=== PATIENT | female | born 1960 | race Caucasian/White ===

== ENCOUNTER 2018-02-27 14:16 | Inpatient (IN) ==
[2018-02-27] MEDS ORDERED: predniSONE 20 MG TABLET PO ONE (15:17)
[2018-02-27] MEDS ORDERED: Ipratropium/Albuterol Neb 3 ML IH ONE (15:17)
--- NOTE | 2018-02-27 15:20 | Emergency Department Note ---
Disposition Clinical Impression: Vomiting and diarrhea, Elevated troponin Asthma with exacerbation Qualifiers: Asthma severity: moderate Asthma persistence: persistent Qualified Code(s): J45.41 - Moderate persistent asthma with (acute) exacerbation Upper respiratory infection Qualifiers: URI type: unspecified viral URI Qualified Code(s): J06.9 - Acute upper respiratory infection, unspecified Disposition: Admitted As Inpatient Condition: Good Referrals: Yuko Washington, [employer]CR[employer]ING SUPERVISOR [Primary Care Provider] - Forms: ED Satisfaction Letter Time of Disposition: 17:09 SOB HPI - General Chief Complaint: ED Shortness of Breath/Dyspnea Stated Complaint: "can't breathe,can't pee" Time Seen by Provider: 02/27/18 14:58 Source: patient Mode of arrival: ambulatory Limitations: no limitations Nursing Notes Reviewed: Yes Vital Signs Reviewed: Yes - History of Present Illness This is a 57-year-old female who comes to the emergency department reporting shortness of breath that began 6 days prior to arrival, accompanied by a cough. She states that 4 days prior to arrival she also developed nausea with vomiting and diarrhea. She states that 24 hours prior to arrival she noticed matter gluing together the eyelids of both eyes. She saw her PCP yesterday and was given a prescription for an antibiotic, amoxicillin she believes, along with eyedrops for perceived bacterial conjunctivitis. She has a Pulmicort inhaler, but uses this only occasionally, "when she needs it". I explained to her that the steroid inhaler is to be used every day as a preventative so that she might never need to use her albuterol. She clearly did not understand this. - Related Data Home Medications Medication Instructions Recorded Confirmed Albuterol Sulfate [Proair Hfa] 2 puff IH Q4H PRN 02/27/18 02/27/18 Aspirin Enteric Coated [Aspirin EC] 81 mg PO DAILY 02/27/18 02/27/18 Budesonide [Pulmicort Flexhaler 2 puff IH BID 02/27/18 02/27/18 90mcg] Calcium Carbonate [Calcium] 600 mg PO DAILY 02/27/18 02/27/18 Carvedilol 12.5 mg PO BID 02/27/18 02/27/18 Chlorthalidone 25 mg PO DAILY 02/27/18 02/27/18 Cholecalciferol (D-3) [Vitamin D] 2,000 unit PO DAILY 02/27/18 02/27/18 Esomeprazole Magnesium [Nexium] 20 mg PO DAILY 02/27/18 02/27/18 Folic Acid 0.8 mg PO DAILY 02/27/18 02/27/18 Insulin Pump Cartridge [Insulin 1 device SQ AD 02/27/18 02/27/18 Pump] Lisinopril [Zestril] 40 mg PO DAILY 02/27/18 02/27/18 Methotrexate [Otrexup] 17.5 mg PO TU 02/27/18 02/27/18 Rosuvastatin [Crestor] 40 mg PO HS 02/27/18 02/27/18 Tofacitinib Citrate [Xeljanz] 5 mg PO BID 02/27/18 02/27/18 Allergies Allergy/AdvReac Type Severity Reaction Status Date / Time fluoxetine [From Prozac] Allergy Dizziness Verified 02/27/18 16:55 All systems ED: reviewed and negative except as stated. Constitutional: Reports: weakness Eyes: Reports: eye discharge Cardiovascular: Denies: chest pain, palpitations, dyspnea on exertion, edema, syncope Respiratory: Reports: cough, dyspnea, sputum production Gastrointestinal: Reports: nausea, vomiting, diarrhea Genitourinary: Denies: dysuria, frequency, hematuria, discharge Musculoskeletal: Denies: back pain, neck pain, arthralgia, myalgia Integumentary: Denies: rash, abrasion, lesions Neurological: Denies: headache, weakness, numbness, paresthesias, confusion, abnormal gait, vertigo Psychiatric: Denies: anxiety, depression, suicidal thoughts, homicidal thoughts , auditory hallucinations, visual hallucinations Endocrine: Denies: fatigue Hematological/Lymphatic: Denies: easy bleeding, easy bruising Past Medical History - Past Medical History Medical history: Reports: asthma Surgical history: Reports: non-contributory - Social History Smoking Status: Never smoker Smokeless Tobacco Status: No Alcohol use: Reports: occasionally Drug use: Reports: none Physical Exam - General Limitations: no limitations General appearance: alert, in no apparent distress - Head Head exam: atraumatic, normocephalic, normal inspection - Eye Eye exam: Present: normal appearance, PERRL, EOMI. Absent: conjunctival injection - Neck Neck exam: Present: normal inspection, full ROM, trachea midline - Chest Chest inspection: Present: normal inspection, symmetric chest wall rise - Respiratory Respiratory exam: Present: normal lung sounds bilaterally. Absent: respiratory distress, wheezes - Cardiovascular Cardiovascular exam: Present: regular rate, normal rhythm, normal heart sounds - Abdominal Exam Abdominal exam: Present: soft, Non-Tender. Absent: tenderness, distention, guarding, rebound, rigidity - Extremities Exam Extremities exam: Present: normal inspection, full ROM. Absent: tenderness, pedal edema - Neurological Exam Neurological exam: Present: alert, oriented X3 - Psychiatric Psychiatric exam: Present: normal affect, normal mood - Skin Skin exam: Present: warm, dry, intact, normal color Course Course Narrative: This is a 57-year-old female who I believe probably has a viral illness aggravating her asthma. Vital Signs Temperature 98.5 F 02/27/18 14:25 Pulse Rate 69 02/27/18 14:25 Respiratory Rate 18 02/27/18 14:25 Blood Pressure 142/81 02/27/18 14:25 O2 Sat by Pulse Oximetry 93 02/27/18 14:25 Temperature 98.5 F 02/27/18 15:00 Pulse Rate 65 02/27/18 16:00 Respiratory Rate 20 02/27/18 16:00 Blood Pressure 108/78 02/27/18 16:00 O2 Sat by Pulse Oximetry 99 02/27/18 16:00 Oxygen Delivery Oxygen Delivery Nasal Cannula Shortness of Breath/Dyspnea - MDM Narrative Medical decision making narrative: This is a 57-year-old female with shortness of breath and cough concerning for asthma exacerbation or another serious pathology. Heparin was ordered for a possible non-ST elevation AR, although my suspicion is that the elevated troponin is probably secondary to her renal dysfunction. Bronchodilators and prednisone were ordered for asthma exacerbation I discussed her case with the on-call hospitalist, who accepted her for admission - Lab Data Lab results reviewed: Yes I reviewed the patient's lab results. Lab results narrative: CBC shows leukocytosis at 15 with anemia of 10.4 and 32.6 BMP shows hyponatremia at 132, when necessary elevated at 58, creatinine elevated at 4.02 Troponin was elevated at 0.15 Result diagrams: 02/27/18 15:01 02/27/18 15:01 Lab Results 02/27/18 02/27/18 02/27/18 Range/Units 15:01 15:01 15:01 WBC 15.0 H (4.3-11.1) K/mcL RBC 3.57 L (3.82-4.97) M/mcL Hgb 10.4 L (11.5-15.4) g/dL Hct 32.6 L (35.3-44.9) % MCV 91.3 (83.0-100.0) fL MCH 29.1 (28.0-33.3) pg MCHC 31.9 (31.6-35.5) g/dL RDW 14.4 (11.5-14.5) % Plt Count 297 (140-400) K/mcL MPV 11.0 (9.4-12.4) fL PT (9.4-12.1) Seconds INR Heparin Anti-Xa, Unfract (0.30-0.70) IU/mL Sodium 132 L (136-145) mEq/L Potassium 3.5 (3.5-5.1) mEq/L Chloride 92 L (98-107) mEq/L Carbon Dioxide 29 (23-29) mEq/L BUN 58 H (6-20) mg/dL Creatinine 4.02 H (0.60-1.20) mg/dL Est GFR ( Amer) 14 L (> 60) Est GFR (Non-Af Amer) 11 L (> 60) BUN/Creatinine Ratio 14 (6-26) Glucose 133 H (70-105) mg/dL Calculated Osmolality 292 (280-300) Lactic Acid 0.8 (0.5-2.2) mmol/L Calcium 8.9 (8.6-10.3) mg/dL Troponin I 0.15 H* (< 0.04) ng/mL B-Natriuretic Peptide (Less than 100) pg/mL 02/27/18 02/27/18 Range/Units 15:01 15:02 WBC (4.3-11.1) K/mcL RBC (3.82-4.97) M/mcL Hgb (11.5-15.4) g/dL Hct (35.3-44.9) % MCV (83.0-100.0) fL MCH (28.0-33.3) pg MCHC (31.6-35.5) g/dL RDW (11.5-14.5) % Plt Count (140-400) K/mcL MPV (9.4-12.4) fL PT 12.2 H (9.4-12.1) Seconds INR 1.1 Heparin Anti-Xa, Unfract 0.07 L (0.30-0.70) IU/mL Sodium (136-145) mEq/L Potassium (3.5-5.1) mEq/L Chloride (98-107) mEq/L Carbon Dioxide (23-29) mEq/L BUN (6-20) mg/dL Creatinine (0.60-1.20) mg/dL Est GFR ( Amer) (> 60) Est GFR (Non-Af Amer) (> 60) BUN/Creatinine Ratio (6-26) Glucose (70-105) mg/dL Calculated Osmolality (280-300) Lactic Acid (0.5-2.2) mmol/L Calcium (8.6-10.3) mg/dL Troponin I (< 0.04) ng/mL B-Natriuretic Peptide 325 H (Less than 100) pg/mL - Radiology Data Radiology results reviewed: Yes I reviewed the patient's radiology results. Chest x-ray showed no acute process - EKG Data EKG attestation: Yes I reviewed and interpreted this EKG. EKG results narrative: ECG showed sinus rhythm, 66 bpm, normal intervals, normal axis, normal ST and T waves
[2018-02-27] MEDS ORDERED: 0.9 % Sodium Chloride 1,000 ML IVC ONE (15:22)
[2018-02-27 15:25] LABS: Hematocrit 32.6 % (35.3-44.9); Hemoglobin 10.4 g/dL (11.5-15.4); Mean Corpuscular HGB Conc 31.9 g/dL (31.6-35.5); Mean Corpuscular Hemoglobin 29.1 pg (28.0-33.3); Mean Corpuscular Volume 91.3 fL (83.0-100.0); Platelet Count 297 K/mcL (140-400); Red Blood Count 3.57 M/mcL (3.82-4.97); Red Cell Distribution Width 14.4 % (11.5-14.5)
[2018-02-27 15:37] LABS: Calcium 8.9 mg/dL (8.6-10.3); Potassium 3.5 mEq/L (3.5-5.1)
[2018-02-27 15:46] LABS: Troponin I 0.15 ng/mL (< 0.04)
[2018-02-27] MEDS ORDERED: *HR* Heparin 5,000 UNIT/ML VIAL IVP ONE ×2 (15:56→15:57)
[2018-02-27] MEDS ORDERED: *HR* Heparin 5,000 UNIT/ML VIAL IVP PRN ×4 (15:57→17:01)
[2018-02-27 16:13] LABS: Heparin anti-factor XA UFH 0.07 IU/mL (0.30-0.70)
[2018-02-27 16:14] LABS: INR 1.1; Prothrombin Time 12.2 Seconds (9.4-12.1)
[2018-02-27] MEDS ORDERED: Heparin 25,000 UNIT/500 ML D5W 25,000 UNIT/500 ML BAG IVC SCH (16:15)
[2018-02-27] MEDS ORDERED: Naloxone 0.4 MG/ML INJ IVP PRN (18:30)
[2018-02-27] MEDS ORDERED: GuaiFENesin/Dextromethorphan TABLET PO PRN (18:52)
[2018-02-27] MEDS ORDERED: Dextrose Gel 15 GM/37.5 ML TUBE PO PRN ×2 (19:06)
[2018-02-27] MEDS ORDERED: D5% in Water 1,000 ML IVC PRN (19:06)
[2018-02-27] MEDS ORDERED: *HR* Dextrose 50 % in Water (Syg) 50 ML SYRINGE IVP PRN (19:06)
--- NOTE | 2018-02-27 19:19 | Internal Med History&Physical ---
Date of Encounter: 02/27/18 Time of Encounter: 17:30 Internal Medicine - H&P: HPI Chief complaint: SOB/No urine output for 24 hours Admitted From: Emergency Dept Plans for Post Hospital Care: Home History of present illness: Ms. Moralez is a 57 year old female w/PMH of asthma, diabetes controlled with insulin pump, HTN, HLD, GERD, and RA presents from the ED with chief complaint of shortness of breath and no urine output for the past 24 hours. Patient also reports nonproductive cough since last Monday, eyes matting shut, vomiting, nausea, diarrhea for which she went to see her PCP and placed on by mouth antibiotics. In PCPs office, patient found to have SPO2 of 87% and was given DuoNeb in the office. Patient came to ED today due to worsening symptoms. On admission patient's troponin 0.15 but denies chest pain. Patient placed on heparin drip in ED. Patient's creatinine 4.02 and GFR of 11 on admission with patient denying history of CKD. WBC 15.0 on admission but pt. asymptomatic and afebrile. Reports hx of chronic UTIs every 2 months approx. Pt. denies recent illness, fever, chills, headache, changes in vision, abdominal pain, chest pain , constipation, dizziness, lightheadedness, numbness, tingling, pre-syncope, or syncope. Past Med Surg Social Fam HX - Past Medical History Source: patient, old records reviewed, obtained from family Medical history: asthma, diabetes, GERD, hyperlipidemia, hypertension, RA Psychiatric history: depression - Past Surgical History Surgical History: non-contributory Additional surgical history: hammer toes, RA nodule excision - Social History Smoking Status: Former smoker Packs per day: 1 PPD - Reports quitting in 1997 Smokeless Tobacco Status: No Alcohol use: occasionally Drug use: none Current living situation: Home, With Family Activity Level: Independent ambulation Recent Out of Country Travel Within the Last 8 Weeks: No Exposure or Possible Exposure to Illness During Travel: No - Family History Father Race: Family Member Ethnicity: Non- Living Status: Still Living Hx Family Medical Disorders: No Mother Race: Family Member Ethnicity: Non- Living Status: Still Living Hx Family Cardiac Disorders: Yes (HTN) Brother Race: Family Member Ethnicity: Non- Living Status: Still Living Hx Family Cardiac Disorders: Yes (HTN) Hx Family Endocrine Disorder: Yes (DM) Sister Race: Family Member Ethnicity: Non- Living Status: Age at : 20 Cause of : Automobile accident Internal Medicine - H&P: Meds Albuterol Sulfate [Proair Hfa] 2 puff IH Q4H PRN 02/27/18 [History] Aspirin Enteric Coated [Aspirin EC] 81 mg PO DAILY 02/27/18 [History] Budesonide [Pulmicort Flexhaler 90mcg] 2 puff IH BID 02/27/18 [History] Calcium Carbonate [Calcium] 600 mg PO DAILY 02/27/18 [History] Carvedilol 12.5 mg PO BID 02/27/18 [History] Chlorthalidone 25 mg PO DAILY 02/27/18 [History] Cholecalciferol (D-3) [Vitamin D] 2,000 unit PO DAILY 02/27/18 [History] Esomeprazole Magnesium [Nexium] 20 mg PO DAILY 02/27/18 [History] Folic Acid 0.8 mg PO DAILY 02/27/18 [History] Insulin Pump Cartridge [Insulin Pump] 1 device SQ AD 02/27/18 [History] Lisinopril [Zestril] 40 mg PO DAILY 02/27/18 [History] Methotrexate [Otrexup] 17.5 mg PO TU 02/27/18 [History] Rosuvastatin [Crestor] 40 mg PO HS 02/27/18 [History] Tofacitinib Citrate [Xeljanz] 5 mg PO BID 02/27/18 [History] 3 Allergy/AdvReac Type Severity Reaction Status Date / Time fluoxetine [From Prozac] Allergy Dizziness Verified 02/27/18 16:55 All Systems PM: A 10-system review of systems was performed and is negative for pertinent findings except as documented above in the HPI. - Constitutional Constitutional: as per HPI, no chills, no fever(s), no night sweats - EENT Eyes: no change in vision, no discharge, no pain, no photophobia Ears: no ear discharge, no ear pain, no tinnitus Nose, mouth and throat: no dysphagia, no nasal discharge, no neck pain, no sore throat - Breasts Breasts: as per HPI - Cardiovascular Cardiovascular ROS IM: as per HPI, dyspnea, dyspnea on exertion, no chest pain, no diaphoresis, no lightheadedness, no palpitations, no syncope - Respiratory Respiratory: as per HPI, cough, dyspnea, dyspnea on exertion, no wheezing, no excessive phlegm production - Gastrointestinal Gastrointestinal: diarrhea, vomiting, no abdominal pain, no hematemesis, no hematochezia, no melena, no nausea - Genitourinary Genitourinary: other (Oliguria), no change in urinary stream, no dysuria, no flank pain, no hematuria Menstruation: as per HPI - Musculoskeletal Musculoskeletal ROS IM: arthralgias, no numbness, no tingling - Integumentary Integumentary IM: no rash, no unusual bruising - Neurological Neurological ROS: no confusion, no convulsions, no focal weakness, no numbness, no tingling, no tremor(s) - Psychiatric Psychiatric: as per HPI, depression - Endocrine Endocrine IM: as per HPI - Hematologic/Lymphatic Hematologic/Lymphatic: no easy bruising - Allergic/Immunologic Allergic/Immunologic: as per HPI - Constitutional Vitals: Temp Pulse Resp BP Pulse Ox 98.5 F 69 20 146/62 99 02/27/18 15:00 02/27/18 18:01 02/27/18 18:01 02/27/18 18:01 02/27/18 18:01 General appearance: Present: cooperative, mild distress (SOB/cough), A&O X 3, pleasant, obese, answers questions appropriately - Head Head exam: Present: atraumatic, normocephalic - Eye Eye exam: Present: PERRL, conjuntiva pink, sclera anicteric Pupils: Present: PERRL - ENT ENT exam: Present: normal exam - Neck Neck exam general surgery: Present: normal inspection, supple, trachea midline. Absent: lymphadenopathy - Respiratory Respiratory exam: Present: CTAB. Absent: accessory muscle use, rales, rhonchi, wheezes - Cardiovascular Cardiovascular exam: Present: RRR, +S1, +S2. Absent: diastolic murmur, gallop, rubs, systolic murmur - GI/Abdominal GI/Abdominal exam: Present: normal bowel sounds, soft, no peritoneal signs. Absent: distended, tenderness - Rectal Rectal exam: Present: deferred - Additional comments: exam deferred. - Extremities Exam Extremities exam: Present: warm, radial pulses palpable and symmetrical. Absent : calf tenderness, cyanotic, pedal edema - Back Exam Back exam: Present: normal inspection - Neurological Exam Neurological exam: Present: alert, CN II-XII intact, oriented X3, no focal deficits. Absent: pronater drift, facial droop, speech deficit - Psychiatric Psychiatric exam: Present: normal affect, normal mood - Skin Skin exam: Present: dry, intact Internal Med - H&P Results - Labs CBC & Chem 7: 02/27/18 15:01 02/27/18 15:01 - EKG Data EKG shows normal: sinus rhythm - EKG Data Prior EKG available for review: no EKG comments: 02/27/18 19:28 EKG dated 02/27/18 shows sinus rhythm with low QRS voltage in precordial leads. - Diagnostic Studies Chest x-ray Additional comments: Impressions Chest X-Ray 02/27/18 14:46 IMPRESSION: No acute process. D/ / Ross Henderson MD / Ross Henderson MD Interpreting Provider: Ross Henderson MD - Assessment and plan (1) MIKE (acute kidney injury) Current Visit: Yes Status: Acute Assessment and plan: MIKE on admission w/creatinine of 4.02 and GFR of 11. No urine output for 24 hours. Pt. reports N/V/Diarrhea for several days. Denies hx of CKD. Moser catheter ordered for next 24 hours to monitor output and quality. Pt. received 1L 0.9 IV fluid bolus in ED. Will follow w/125 mLs/HR. Strict I&O. Will hold pts. Chlorthalidone, Xeljanz, and methotrexate due to current MIKE. Will avoid nephrotoxins. Nephrology consult ordered and discussed with Dr. Adams with recommendation for CPK and uric acid, strict monitoring I&O, aggressive fluid hydration, and close monitoring of pts. f/u labs and output. Complete retroperitoneal ultrasound ordered. (2) Upper respiratory infection Current Visit: Yes Status: Acute Assessment and plan: Acute suspected upper respiratory infection. Pt. reports SOB and non-productive cough. Hx of asthma. Denies home O2 use. WBC of 15.0 on admission. No identifiable source at this time, pt. afebrile and asymptomatic. Respiratory infection panel ordered. DuoNebs Q6HR scheduled. Supplemental O2 w/titration and SpO2 monitoring. Mucinex DM for cough. Continue pts. inhalers PRN. Will add abx coverage if cultures warrant. Pt. discussed w/Dr. Veliz who agrees w/plan of care. Pt. is high risk for further morbidity d/t current elevated troponin, MIKE w/creatinine of 4.02 and GFR of 11 requiring aggressive fluid hydration and monitoring, suspected URI and/or UTI (d/t hx of chronic UTIs), hx, and risk factors. Observation. Qualifiers: URI type: unspecified viral URI Qualified Code(s): J06.9 - Acute upper respiratory infection, unspecified (3) Elevated troponin Current Visit: Yes Status: Acute Assessment and plan: Acutely elevated troponin of 0.15 on admission. Likely demand from SOB. Will trend. Pt. placed on heparin drip. Denies CP or cardiac sx. Consider Cardiology consult in a.m. if troponins increase. Continuous cardiac telemetry. Monitor pt. and tele for cardiac changes. (4) Vomiting and diarrhea Current Visit: Yes Status: Acute Assessment and plan: Acute nausea, vomiting, and diarrhea. Strict I&O. IVP Phenergan 12.5 mg every 6 hours when necessary for nausea and vomiting. Monitor bowel movements to determine if Imodium is appropriate. Clear liquid diet to be advanced as tolerated. (5) Leukocytosis Current Visit: Yes Status: Acute Assessment and plan: Acute leukocytosis of 15.0 on admission. Pt. afebrile and asymptomatic for infection except for cough. Possible respiratory infection. Pt. also reports hx of chronic UTIs (one approx. every other month). UA with microscopic reflex and culture ordered. Take sample from Moser. Respiratory infection panel ordered. Monitor WBC and add abx coverage if cultures warrant. Tylenol if pt. becomes febrile. Monitor pt. and f/u labs. Qualifiers: Leukocytosis type: unspecified Qualified Code(s): D72.829 - Elevated white blood cell count, unspecified (6) Drop in hemoglobin Current Visit: Yes Status: Acute Assessment and plan: Acute drop in Hgb to 10.4. Pt. denies hx of anemia. No previous records for comparison. Most likely d/t pts. current dehydration status. Monitor H/H in f/u labs. (7) Hyponatremia Current Visit: Yes Status: Acute Assessment and plan: Acute hyponatremia of 132 on admission. Chloride 92. Pt. most likely dry d/t current MIKE and lack of urine output. Pt. received 1L 0.9 fluid bolus in ED. Continue 0.9 IV fluids @ 125 mLs/HR. Monitor f/u labs for resolution. (8) Elevated brain natriuretic peptide (BNP) level Current Visit: Yes Status: Acute Assessment and plan: Acutely elevated BNP of 325 on admission. No hx of CHF, no pedal edema, and CXR shows no acute process. Most likely d/t current MIKE. Will continue to monitor pt. for signs of fluid overload. Pt. currently dry so will not restrict fluid intake. (9) Asthma Current Visit: Yes Status: Chronic Assessment and plan: Hx of chronic asthma. Pt. admitted w/SOB. Patient requires education on use of long-term versus short-term asthma control. Patient instructed she should be using her Pulmicort inhaler daily as maintenance so she does not require use of her albuterol rescue inhaler as often. Patient expresses understanding and agreement. Supplemental O2 w/titration and SpO2 monitoring. DuoNebs every 6 hours scheduled. Continue pts. inhalers PRN. Qualifiers: Asthma severity: unspecified severity Asthma persistence: intermittent Asthma complication type: with acute exacerbation Qualified Code(s): J45.21 - Mild intermittent asthma with (acute) exacerbation (10) Diabetes Current Visit: Yes Status: Chronic Assessment and plan: Hx of chronic diabetes controlled by personal insulin pump. We will continue patient's insulin pump and add low-dose correction sliding scale and hypoglycemic protocol. BG checks before meals at bedtime. A1c in a.m. labs. Qualifiers: Diabetes mellitus type: type 1 Diabetes mellitus complication status: with unspecified complications Qualified Code(s): E10.8 - Type 1 diabetes mellitus with unspecified complications (11) HLD (hyperlipidemia) Current Visit: Yes Status: Chronic Assessment and plan: Hx of chronic HLD. Lipid panel in a.m. labs. Continue pts. PO Crestor. Qualifiers: Hyperlipidemia type: pure hypercholesterolemia Qualified Code(s): E78.00 - Pure hypercholesterolemia, unspecified; E78.0 - Pure hypercholesterolemia (12) HTN (hypertension) Current Visit: Yes Status: Chronic Assessment and plan: Hx of chronic HTN. Monitor pt. and VS. Continue pts. Lisinopril and carvedilol. Holding patient's chlorthalidone due to current MIKE. Qualifiers: Hypertension type: essential hypertension Qualified Code(s): I10 - Essential (primary) hypertension (13) GERD (gastroesophageal reflux disease) Current Visit: Yes Status: Chronic Assessment and plan: Hx of chronic GERD. Continue pts. PO Nexium. Qualifiers: Esophagitis presence: esophagitis presence not specified Qualified Code(s) : K21.9 - Gastro-esophageal reflux disease without esophagitis (14) Rheumatoid arthritis Current Visit: Yes Status: Chronic Assessment and plan: Hx of chronic RA. Pt. takes Xeljanz and methotrexate. Will hold both due to patient's current MIKE. Stair-step pain mgmt. Qualifiers: Rheumatoid arthritis location: unspecified site Rheumatoid factor presence : unspecified presence Qualified Code(s): M06.9 - Rheumatoid arthritis, unspecified (15) DVT prophylaxis Current Visit: Yes Status: Acute Assessment and plan: Pt. placed on heparin drip d/t initial troponin of 0.15. Monitor pt. for signs of bleeding. - Time Spent With Patient Total time spent is greater than 50% in coordination of care (as documented) at patient's floor/unit and/or counseling patient: Greater than 35 minutes
[2018-02-27] MEDS ORDERED: *HR* Promethazine 25 MG/ML VIAL IVP PRN (19:48)
[2018-02-27 19:59] LABS: Uric Acid 10.1 mg/dL (2.3-7.6)
--- NOTE | 2018-02-27 20:06 | Event Note ---
Date of Encounter: 02/27/18 Time of Encounter: 17:30 I have seen and examined this pt independently. I have discussed with [employer] [place] regarding the management plan. Agree with the documentation.
[2018-02-27] MEDS ORDERED: Insulin LISPRO 300 UNITS/3 ML VIAL SQ SCH (21:00)
[2018-02-27] MEDS: 0.9 % Sodium Chloride 1,000 ML IVC SCH (21:46)
[2018-02-27] MEDS: (Insulin Pump Cartridge [Insulin Pump] 1 DEVICE) SQ SCH (21:46)
[2018-02-27] MEDS: Ipratropium/Albuterol Neb 3 ML IH SCH (22:19)
[2018-02-27] MEDS: Beclomethasone 80mcg MDI IH SCH (22:19)
[2018-02-28 00:17] LABS: Bilirubin,Urine Negative (Negative); Blood,Urine Moderate (Negative); Clarity,Urine Cloudy (Clear); Color,Urine Yellow (Yellow); Glucose,Urine (UA) Normal (Normal); Ketones,Urine Negative (Negative); Leukocyte Esterase,Urine Negative (Negative); Nitrite,Urine Negative (Negative); PH,Urine 5.5 pH Units (5.0-8.0); Protein,Urine 30 mg/dL (Neg-Trace); Specific Gravity,Urine 1.023 (1.010-1.025); Urobilinogen,Urine Normal (Normal)
[2018-02-28 00:34] LABS: Squamous Epithelial Cell,Urine Many per lpf (None-Few); WBC,Urine 15-30 per hpf (0-3)
[2018-02-28 00:43] LABS: Amorphous Sediment,Urine Few (Few); Bacteria,Urine Moderate per hpf (None-Few); Granular Casts,Urine Few per lpf (None Seen)
[2018-02-28] MEDS: Ipratropium/Albuterol Neb 3 ML IH SCH ×4 (03:50→22:43)
[2018-02-28 04:09] LABS: Basophils % 0.1 %; Eosinophils % 0.1 %; Hematocrit 30.8 % (35.3-44.9); Immature Granulocytes % 0.8 % (0-4); Lymphocytes # 0.3 K/mcL (0.6-4.6); Lymphocytes % 1.9 %; Mean Corpuscular HGB Conc 32.5 g/dL (31.6-35.5); Mean Corpuscular Volume 89.3 fL (83.0-100.0); Mean Platelet Volume 10.6 fL (9.4-12.4); Monocytes # 0.4 K/mcL (0.0-1.3); Monocytes % 2.6 %; Neutrophils # 15.8 K/mcL (1.6-8.9); Platelet Count 258 K/mcL (140-400); Red Blood Count 3.45 M/mcL (3.82-4.97); Red Cell Distribution Width 13.8 % (11.5-14.5); Segmented Neutrophils % 94.5 %
[2018-02-28 04:29] LABS: Albumin 3.4 g/dL (3.5-5.7); Bilirubin,Total 0.4 mg/dL (0.3-1.0); Calcium 8.4 mg/dL (8.6-10.3); Chol/HDL Ratio 2.9 (0-4.9); Globulin 3.5 g/dL (2.4-3.5); Magnesium 1.9 mg/dL (1.6-2.6); Potassium 3.3 mEq/L (3.5-5.1); Total Protein 6.9 g/dL (6.4-8.9)
[2018-02-28] MEDS: 0.9 % Sodium Chloride 1,000 ML IVC SCH ×3 (06:40→22:04)
[2018-02-28 06:54] LABS: Estimated Average Glucose 103 mg/dl; Hemoglobin A1C 5.2 %
[2018-02-28] MEDS ORDERED: Insulin LISPRO 300 UNITS/3 ML VIAL SQ SCH (07:30)
[2018-02-28 08:43] LABS: Adenovirus Not Detected (Not Detect); Bordetella Pertussis Not Detected (Not Detect); Chlamydophila pneumoniae Not Detected (Not Detect); Coronavirus 229E Not Detected (Not Detect); Coronavirus HKU1 Not Detected (Not Detect); Coronavirus NL63 Not Detected (Not Detect); Coronavirus OC43 Not Detected (Not Detect); Human Metapneumovirus Not Detected (Not Detect); Human Rhinovirus/Enterovirus Not Detected (Not Detect); Influenza A Subtype 2009 H1 Not Detected (Not Detect); Influenza A Untypeable Not Detected (Not Detect); Influenza B Not Detected (Not Detect); Mycoplasma pneumoniae Not Detected (Not Detect); Parainfluenza Virus 1 Not Detected (Not Detect); Parainfluenza Virus 2 Not Detected (Not Detect); Parainfluenza Virus 3 Not Detected (Not Detect); Parainfluenza Virus 4 Not Detected (Not Detect); Respiratory Syncytial Virus Not Detected (Not Detect)
[2018-02-28] MEDS ORDERED: Lisinopril 20 MG TABLET PO SCH (09:00)
[2018-02-28] MEDS: Folic Acid 1 MG TABLET PO SCH (10:10)
[2018-02-28] MEDS: Aspirin Enteric Coated 81 MG Tablet PO SCH (10:10)
[2018-02-28] MEDS: Cholecalciferol (D-3) 1,000 UNIT TABLET PO SCH (10:10)
[2018-02-28] MEDS: Beclomethasone 80mcg MDI IH SCH ×2 (10:51→22:43)
[2018-02-28] MEDS ORDERED: Vancomycin 1 EACH in 0.9 % Sodium Chloride 250 ML IVPB PRN (12:00)
[2018-02-28] MEDS: Piperacillin/Tazobactam 3.375 GM in 0.9 % Sodium Chloride Mini Bag 100 ML IVPB SCH (17:04)
--- NOTE | 2018-02-28 17:21 | Internal Med Progress Note ---
<Yobani Garcia W - Last Filed: 02/28/18 18:16> Hospitalist Progress Note - Encounter Date of Encounter: 02/28/18 Time of Encounter: 09:45 - Subjective Interval History: Patient is a 57 yo female presents to the ED with SOB and no urine output for 24 hours. Patient reported a nonproductive cough since last Monday, eyes matted shut, vomiting and diarrhea. Pt went to her PCP and was placed on amoxicillin on 02/26/18. She was found to have oxygen saturation of 87% she received a breathing treatment and was sent home. the following day she went to the ED. Today the patient reports she is not feeling any better, she still complains of SOB, cough, eyes matting shut and some weakness. Patient denies HASSAN , Fever, chills, night sweats, n/v/d/c, abdominal pain, dysuria. patietn was admitted and catheter was placed. Patient had elevated, creatinine at 3.54, sodium 129, potassium 3.3, WBC count of 16.7. Chest CT found b/l focal opacities with concerns for multifocal pneumonia. Placed on Vancomycin, Zosyn, and Levofloxacin. - Exam Vitals: Temp Pulse Resp BP Pulse Ox 97.9 F 70 18 141/66 94 02/28/18 15:28 02/28/18 15:28 02/28/18 15:39 02/28/18 15:28 02/28/18 15:39 Exam: Gen: Patient resting in bed, coughing significantly, mild distress HEENT: PERRLA, EOMI, matting of eyelids, conjuctival injection, no lymphadenopathy Cardio: RRR no m/r/g Pulm: CTA b/l diffuse expiratory wheezing no rales Abd: BS x4, no TTP, no organomegaly Neuro: CN II-XII intact, normal posture, MSK: 5/5 strength UE b/l, 1 + pitting edema b/l LE - Assessment and Plan (1) MIKE (acute kidney injury) Current Visit: Yes Status: Acute Assessment and Plan: MIKE on admission w/creatinine of 4.02 and GFR of 11 Creatinine this am was 3.54 No urine output for 24 hours before admission Retroperitonel US found no evidence of hydronephrosis or nephrolithiasis Catheter measured 2050 ml output today Patient was on MTX and Xeljanz Fluid bolus given Plan -Hold Chlorthalidone, MTX and Xeljanz -Avoid nephrotixins -Continue fluid hydration -Nephro consulted appreciate recs (2) Vomiting and diarrhea Current Visit: Yes Status: Acute Assessment and Plan: Presented with vomiting and diarrhea over the past 4 days Denies current vomiting and diarrhea Plan -IVP Phenergan 12.5 mg q6 prn -monitor bowel movements (3) Elevated troponin Current Visit: Yes Status: Acute Assessment and Plan: Acutely elevated troponin of 0.15 on admission Trending down .12, 0.9 likely demand ischemia denies CP Plan -Trend troponins -Continue tele (4) Drop in hemoglobin Current Visit: Yes Status: Acute Assessment and Plan: Acute drop in Hgb to 10.4. Pt. denies hx of anemia. No previous records for comparison. Most likely d/t pts. current dehydration status. Monitor H/H in f/u labs. (5) Hyponatremia Current Visit: Yes Status: Acute Assessment and Plan: Acute hyponatremia of 132 on admission. this am 129. Chloride 92. Pt. Most likely dry d/t current MIKE and lack of urine output. Continue to monitor Continue fluid hydration (6) Elevated brain natriuretic peptide (BNP) level Current Visit: Yes Status: Acute Assessment and Plan: BNP of 325 on admission. No hx of CHF, no pedal edema CXR shows no acute process Most likely d/t current MIKE. Will continue to monitor pt. for signs of fluid overload. (7) Asthma Current Visit: Yes Status: Chronic Assessment and Plan: Hx of chronic asthma. Pt. admitted w/SOB. Patient requires education on use of long-term versus short-term asthma control. Patient instructed she should be using her Pulmicort inhaler daily as maintenance so she does not require use of her albuterol rescue inhaler as often. Patient expresses understanding and agreement. Supplemental O2 w/titration and SpO2 monitoring. DuoNebs every 6 hours scheduled. Continue pts. inhalers PRN. (8) Diabetes Current Visit: Yes Status: Chronic Assessment and Plan: Hx of chronic diabetes controlled by personal insulin pump. We will continue patient's insulin pump and add low-dose correction sliding scale and hypoglycemic protocol. (9) HLD (hyperlipidemia) Current Visit: Yes Status: Chronic Assessment and Plan: Hx of chronic HLD. Continue Crestor. (10) HTN (hypertension) Current Visit: Yes Status: Chronic Assessment and Plan: History of chronic HTN Continue carvedilol. Hold chlorthalidone amd lisinopril due to current MIKE. (11) GERD (gastroesophageal reflux disease) Current Visit: Yes Status: Chronic Assessment and Plan: Known history of GERD continue Nexium (12) Rheumatoid arthritis Current Visit: Yes Status: Chronic Assessment and Plan: Hx of chronic RA. Pt. takes Xeljanz and methotrexate. Will hold both due to patient's current MIKE. (13) DVT prophylaxis Current Visit: Yes Status: Acute Assessment and Plan: Heparin SQ (14) Pneumonia Current Visit: Yes Status: Acute Assessment and Plan: Chest CT found bl opacifications suspect for multifocal pneumonia Patient has persistent cough with associated SOB History of asthma with diffuse expiratory wheezing on exam WBC count 16.7 today Plan -Zosyn, vancomycin and levaquin added day 1 -Duonebs q6, albuterol prn, Qvar 1 puff BID - Time Spent with Patient Total time spent is greater than 50% in coordination of care (as documented) at patient's floor/unit and/or counseling patient: Internal Medicine: Result - Labs CBC & Chem 7: 02/28/18 03:50 02/28/18 03:50 Labs: Short CBC 02/28/18 Range/Units 03:50 WBC 16.7 H (4.3-11.1) K/mcL Hgb 10.0 L (11.5-15.4) g/dL Hct 30.8 L (35.3-44.9) % Plt Count 258 (140-400) K/mcL Neutrophils # 15.8 H (1.6-8.9) K/mcL BMP 02/28/18 03:50 Sodium 129 L Potassium 3.3 L Chloride 92 L Carbon Dioxide 24 BUN 59 H Creatinine 3.54 H Glucose 114 H Calcium 8.4 L Cardiac Enzymes 02/27/18 02/28/18 Range/Units 22:23 03:50 Troponin I 0.12 H* 0.09 H* (< 0.04) ng/mL Liver Function 02/28/18 Range/Units 03:50 Total Bilirubin 0.4 (0.3-1.0) mg/dL AST 28 (13-39) Units/L ALT 23 (7-52) Units/L Alkaline Phosphatase 94 (34-104) Units/L Albumin 3.4 L (3.5-5.7) g/dL Urine 02/27/18 Range/Units 23:55 Urine Color Yellow (Yellow) Urine Clarity Cloudy A (Clear) Urine pH 5.5 (5.0-8.0) pH Units Ur Specific Miranda 1.023 (1.010-1.025) Urine Protein 30 H (Neg-Trace) mg/dL Urine Glucose (UA) Normal (Normal) mg/dL - ABG Interpretation ABG results: PT/INR, D-dimer PT 12.2 Seconds (9.4-12.1) H 02/27/18 15:02 - Impressions Impressions Retroperitoneum Ultrasound 02/27/18 21:00 IMPRESSION: No hydronephrosis or nephrolithiasis. Small simple cyst along the mid/inferior left kidney. D/ / Marvin Vann / Marvin Vann Interpreting Provider: Marvin Vann Abdomen/Pelvis CT 02/28/18 15:00 IMPRESSION: 1. Bilateral pulmonary opacities concerning for multifocal pneumonia most evident in the lower lobes. 2. Trace free fluid in the pelvic cavity may be physiologic or reactive secondary to an occult infectious or inflammatory process. Otherwise, no acute abdominopelvic abnormality. 3. Small hiatal hernia. D/ / Dairo Alvarez / Dario Alvarez Interpreting Provider: Dario Alvarez Chest CT 02/28/18 15:00 IMPRESSION: 1. Bilateral pulmonary opacities concerning for multifocal pneumonia most evident in the lower lobes. 2. Trace free fluid in the pelvic cavity may be physiologic or reactive secondary to an occult infectious or inflammatory process. Otherwise, no acute abdominopelvic abnormality. 3. Small hiatal hernia. D/ / Dario Alvarez / Dario Alvarez Interpreting Provider: Dario Alvarez Consult Discharge Plan - Plan Referrals: Yuko Washington, [employer] [Primary Care Provider] - <Judson Castaneda - Last Filed: 02/28/18 18:33> Hospitalist Progress Note - Encounter Date of Encounter: 02/28/18 - Exam Vitals: Temp Pulse Resp BP Pulse Ox 97.9 F 70 18 141/66 94 02/28/18 15:28 02/28/18 15:28 02/28/18 15:39 02/28/18 15:28 02/28/18 15:39 - Assessment and Plan (1) Pneumonia Current Visit: Yes Status: Suspected Assessment and Plan: Concern for Legionella with hyponatremia. (2) Vomiting and diarrhea Current Visit: Yes Status: Acute (3) Elevated troponin Current Visit: Yes Status: Acute (4) MIKE (acute kidney injury) Current Visit: Yes Status: Acute (5) Drop in hemoglobin Current Visit: Yes Status: Acute (6) Hyponatremia Current Visit: Yes Status: Acute (7) Elevated brain natriuretic peptide (BNP) level Current Visit: Yes Status: Acute (8) Asthma Current Visit: Yes Status: Chronic (9) Diabetes Current Visit: Yes Status: Chronic (10) HLD (hyperlipidemia) Current Visit: Yes Status: Chronic (11) HTN (hypertension) Current Visit: Yes Status: Chronic (12) GERD (gastroesophageal reflux disease) Current Visit: Yes Status: Chronic (13) Rheumatoid arthritis Current Visit: Yes Status: Chronic (14) DVT prophylaxis Current Visit: Yes Status: Acute - Time Spent with Patient Total time spent is greater than 50% in coordination of care (as documented) at patient's floor/unit and/or counseling patient: Internal Medicine: Result - Labs CBC & Chem 7: 02/28/18 03:50 02/28/18 03:50 Labs: Short CBC 02/28/18 Range/Units 03:50 WBC 16.7 H (4.3-11.1) K/mcL Hgb 10.0 L (11.5-15.4) g/dL Hct 30.8 L (35.3-44.9) % Plt Count 258 (140-400) K/mcL Neutrophils # 15.8 H (1.6-8.9) K/mcL BMP 02/28/18 03:50 Sodium 129 L Potassium 3.3 L Chloride 92 L Carbon Dioxide 24 BUN 59 H Creatinine 3.54 H Glucose 114 H Calcium 8.4 L Cardiac Enzymes 08/14/18 08/15/18 Range/Units 22:23 03:50 Troponin I 0.12 H* 0.09 H* (< 0.04) ng/mL Liver Function 02/28/18 Range/Units 03:50 Total Bilirubin 0.4 (0.3-1.0) mg/dL AST 28 (13-39) Units/L ALT 23 (7-52) Units/L Alkaline Phosphatase 94 (34-104) Units/L Albumin 3.4 L (3.5-5.7) g/dL Urine 02/27/18 Range/Units 23:55 Urine Color Yellow (Yellow) Urine Clarity Cloudy A (Clear) Urine pH 5.5 (5.0-8.0) pH Units Ur Specific Miranda 1.023 (1.010-1.025) Urine Protein 30 H (Neg-Trace) mg/dL Urine Glucose (UA) Normal (Normal) mg/dL - ABG Interpretation ABG results: PT/INR, D-dimer PT 12.2 Seconds (9.4-12.1) H 02/27/18 15:02 - Impressions Impressions Retroperitoneum Ultrasound 02/27/18 21:00 IMPRESSION: No hydronephrosis or nephrolithiasis. Small simple cyst along the mid/inferior left kidney. D/ / Marvin Vann / Marvin Vann Interpreting Provider: Marvin Vann Abdomen/Pelvis CT 02/28/18 15:00 IMPRESSION: 1. Bilateral pulmonary opacities concerning for multifocal pneumonia most evident in the lower lobes. 2. Trace free fluid in the pelvic cavity may be physiologic or reactive secondary to an occult infectious or inflammatory process. Otherwise, no acute abdominopelvic abnormality. 3. Small hiatal hernia. D/ / Dario Alvarez / Dario Alvarez Interpreting Provider: Dario Alvarez Chest CT 02/28/18 15:00 IMPRESSION: 1. Bilateral pulmonary opacities concerning for multifocal pneumonia most evident in the lower lobes. 2. Trace free fluid in the pelvic cavity may be physiologic or reactive secondary to an occult infectious or inflammatory process. Otherwise, no acute abdominopelvic abnormality. 3. Small hiatal hernia. D/ / Dario Alvarez / Dario Alvarez Interpreting Provider: Dario Alvarez - Attending Attestation I examined this patient and my medical decision-making was reviewed with the Resident Physician on 02/28/18. I agree with the documented findings, disposition and treatment plan as described except to the extent set forth below. Ms Moralez is currently in observation for acute renal failure and pneumonia. She remains moderate to high risk due to potential for worsening clinical status. Ms Moralez is still coughing a lot. No fever or chills. Face still swollen around eyes with drainage. Can't bring up sputum. No abd pain. No new GI issues. Exam alert Mod distress with cough Mucus membranes dry Heart reg and not tachy Lungs with rales bilateral bases. Abd soft and nontender No edema Abd soft and nontender No rash No neuro deficit CT - bilateral infiltrates I/P 1. Pneumonia - bilateral. Pt is immunocompromised on 2 meds. Started broad spectrum abx at this time. 2. RA 3. MIKE - per renal. Most likely related to dehydration from illness. Further diagnoses and plan as above. <Yobani Garcia W - Last Filed: 02/28/18 18:16> (7) Asthma Qualifiers: Asthma severity: unspecified severity Asthma persistence: intermittent Asthma complication type: with acute exacerbation Qualified Code(s): J45.21 - Mild intermittent asthma with (acute) exacerbation (8) Diabetes Qualifiers: Diabetes mellitus type: type 1 Diabetes mellitus complication status: with unspecified complications Qualified Code(s): E10.8 - Type 1 diabetes mellitus with unspecified complications (9) HLD (hyperlipidemia) Qualifiers: Hyperlipidemia type: pure hypercholesterolemia Qualified Code(s): E78.00 - Pure hypercholesterolemia, unspecified (10) HTN (hypertension) Qualifiers: Hypertension type: essential hypertension Qualified Code(s): I10 - Essential (primary) hypertension (11) GERD (gastroesophageal reflux disease) Qualifiers: Esophagitis presence: esophagitis presence not specified Qualified Code(s): K21.9 - Gastro-esophageal reflux disease without esophagitis (12) Rheumatoid arthritis Qualifiers: Rheumatoid arthritis location: unspecified site Rheumatoid factor presence: unspecified presence Qualified Code(s): M06.9 - Rheumatoid arthritis, unspecified (14) Pneumonia Qualifiers: Pneumonia type: due to unspecified organism Laterality: bilateral Lung location: lower lobe of lung Qualified Code(s): J18.1 - Lobar pneumonia, unspecified organism <Judson Castaneda - Last Filed: 02/28/18 18:33> (1) Pneumonia Qualifiers: Pneumonia type: due to Pneumococcus Laterality: bilateral Lung location: lower lobe of lung Qualified Code(s): J13 - Pneumonia due to Streptococcus pneumoniae (8) Asthma Qualifiers: Asthma severity: unspecified severity Asthma persistence: intermittent Asthma complication type: with acute exacerbation Qualified Code(s): J45.21 - Mild intermittent asthma with (acute) exacerbation (9) Diabetes Qualifiers: Diabetes mellitus type: type 1 Diabetes mellitus complication status: with hyperglycemia Qualified Code(s): E10.65 - Type 1 diabetes mellitus with hyperglycemia (10) HLD (hyperlipidemia) Qualifiers: Hyperlipidemia type: mixed hyperlipidemia Qualified Code(s): E78.2 - Mixed hyperlipidemia (11) HTN (hypertension) Qualifiers: Hypertension type: essential hypertension Qualified Code(s): I10 - Essential (primary) hypertension (12) GERD (gastroesophageal reflux disease) Qualifiers: Esophagitis presence: esophagitis presence not specified Qualified Code(s): K21.9 - Gastro-esophageal reflux disease without esophagitis (13) Rheumatoid arthritis Qualifiers: Rheumatoid arthritis location: unspecified site Rheumatoid factor presence: unspecified presence Qualified Code(s): M06.9 - Rheumatoid arthritis, unspecified
--- NOTE | 2018-02-28 17:35 | Nephrology Consult Note ---
Date of Encounter: 03/01/18 Time of Encounter: 12:00 Assessment and Plan (1) MIKE (acute kidney injury) Current Visit: Yes Status: Acute Elevated SCr in the setting of decreased po intake, N/V, possible sepsis while on methotrexate, diuretics and lisinopril Agree with holding all nephrotoxins Agree with aggressive volume repletion No acute indication for LEGAL ACTIVITY ADJUDICATOR at this time but discussed with patient and family CPK mildly elevated, will trend Uric acid elevated due to decreased renal clearance, will trend Will check urine studies (2) Hyponatremia Current Visit: Yes Status: Acute Improving, likely hypovolemic in nature. Continue IVF (3) Rheumatoid arthritis Current Visit: Yes Status: Chronic Hold current meds; methotraxate and zeljanz Qualifiers: Rheumatoid arthritis location: unspecified site Rheumatoid factor presence : unspecified presence Qualified Code(s): M06.9 - Rheumatoid arthritis, unspecified (4) Pneumonia Current Visit: Yes Status: Suspected Per primary team Qualifiers: Pneumonia type: due to Pneumococcus Laterality: bilateral Lung location: lower lobe of lung Qualified Code(s): J13 - Pneumonia due to Streptococcus pneumoniae History of Present Illness - Reason for Consult Consult date: 02/28/18 Acute Kidney Injury Requesting physician: Jorge Jernigan - History of Present Illness 57 y o female with PMH of RA on methotrexate and xeljanz admitted with several days of N/V starting on monday with decreased po intake and decerased UOP. She was noted to have SCr of 4.02, GFR 11 on presentation. She denied any prior history of renal dysfunction with no recent labs in [facility] system for baseline except from 2014 with GFR >60 then. She also reports some dry coughing and decerased oxygen level at pcpo's office on monday where she was started on amoxicillin for possible infection. SCr improving after 1 liter bolus in the Ed and NS at 125cc/hr overnight at 3.54, GFR 13. Past Med Surg Social Fam HX - Past Medical History Medical history: asthma, diabetes, GERD, hyperlipidemia, hypertension, RA Psychiatric history: depression - Past Surgical History Surgical History: non-contributory Additional surgical history: hammer toes, RA nodule excision - Social History Smoking Status: Former smoker Packs per day: 1 PPD - Reports quitting in 1997 Smokeless Tobacco Status: No Alcohol use: occasionally Drug use: none - Family History Father Race: Family Member Ethnicity: Non- Living Status: Still Living Hx Family Medical Disorders: No Mother Race: Family Member Ethnicity: Non- Living Status: Still Living Hx Family Cardiac Disorders: Yes (HTN) Brother Race: Family Member Ethnicity: Non- Living Status: Still Living Hx Family Cardiac Disorders: Yes (HTN) Hx Family Endocrine Disorder: Yes (DM) Sister Race: Family Member Ethnicity: Non- Living Status: Age at : 20 Cause of : Automobile accident Medications and Allergies Albuterol Sulfate [Proair Hfa] 2 puff IH Q4H PRN 02/27/18 [History] Aspirin Enteric Coated [Aspirin EC] 81 mg PO DAILY 02/27/18 [History] Budesonide [Pulmicort Flexhaler 90mcg] 2 puff IH BID 02/27/18 [History] Calcium Carbonate [Calcium] 600 mg PO DAILY 02/27/18 [History] Carvedilol 12.5 mg PO BID 02/27/18 [History] Chlorthalidone 25 mg PO DAILY 02/27/18 [History] Cholecalciferol (D-3) [Vitamin D] 2,000 unit PO DAILY 02/27/18 [History] Esomeprazole Magnesium [Nexium] 20 mg PO DAILY 02/27/18 [History] Folic Acid 0.8 mg PO DAILY 02/27/18 [History] Insulin Pump Cartridge [Insulin Pump] 1 device SQ AD 02/27/18 [History] Lisinopril [Zestril] 40 mg PO DAILY 02/27/18 [History] Methotrexate [Otrexup] 17.5 mg PO TU 02/27/18 [History] Rosuvastatin [Crestor] 40 mg PO HS 02/27/18 [History] Tofacitinib Citrate [Xeljanz] 5 mg PO BID 02/27/18 [History] 3 Allergy/AdvReac Type Severity Reaction Status Date / Time fluoxetine [From Prozac] Allergy Dizziness Verified 02/27/18 16:55 Review of Systems All Systems: reviewed and no additional remarkable complaints except as stated ( 10 systems reviewed and pertinents noted in HPI) Exam - Vital Signs Vital signs: Initial Vital Signs Temp Pulse Resp BP Pulse Ox 98.5 F 69 18 142/81 93 02/27/18 14:25 02/27/18 14:25 02/27/18 14:25 02/27/18 14:25 02/27/18 14:25 Vital Signs - Last 8 Hours Temp Pulse Resp BP Pulse Ox 02/28/18 15:39 18 94 02/28/18 15:28 97.9 F 70 18 141/66 92 02/28/18 10:53 17 91 02/28/18 10:44 97.4 F L 70 17 137/73 93 Intake and Output 02/28/18 02/28/18 02/28/18 07:59 15:59 23:59 Intake Total 1085 / 1085 2270 / 2270 Output Total 1200 / 1200 850 / 850 Balance -115 / -115 1420 / 1420 Intake: IV Fluids 1085 / 1085 1070 / 1070 0.9 % Sodium Chloride 1,000 ML 950 / 950 950 / 950 @ 125 mls/hr IVC .Q8H [facility] Rx#: [id number] Heparin 25,000 UNIT/500 ML D5W 135 / 135 120 / 120 25,000 unit In 500 ml @ 9.11 UNIT/KG/HR 20 mls/hr IVC .Q24H ELLA Rx#:[id number] Oral 0 / 0 1200 / 1200 Output: Catheter 1200 / 1200 850 / 850 Other: Meal Lunch Percent of Meal Consumed 70% Weight 111.8 kg Blood Glucose* 118 169 200 Patient Weight 02/28/18 23:59 Weight 111.8 kg - General Appearance General appearance: well-developed, well-nourished EENT: ATNC, mucous membranes moist Neck: no JVD, supple Respiratory: clear Cardiology: no edema, normal S1, normal S2 Gastrointestinal: no tenderness, no guarding Integumentary: warm and dry Neurologic: no focal deficit Musculoskeletal: no deformities Psychiatric: mood/affect appropriate, cooperative Results - Lab Results 03/01/18 01:29 03/01/18 01:29 Most recent lab results Calcium 8.4 mg/dL (8.6-10.3) L 02/28/18 03:50 Magnesium 1.9 mg/dL (1.6-2.6) 02/28/18 03:50 Consult Discharge Plan - Plan Referrals: Yuko Washington, LAW ENFORCEMENT DIRECTOR [Primary Care Provider] -
[2018-02-28] MEDS ORDERED: Levofloxacin 500 MG/100 ML 500 MG/100 ML BAG IVPB SCH (18:00)
[2018-02-28] MEDS ORDERED: *HR* Heparin 5,000 UNIT/ML VIAL SQ SCH (18:00)
[2018-02-28 18:09] LABS: Uric Acid 9.3 mg/dL (2.3-7.6)
[2018-02-28] MEDS ORDERED: GuaiFENesin/Codeine Oral Soln 5 ML UDC PO PRN (18:33)
[2018-02-28 19:49] LABS: Sodium, Urine 23.5 mEq/L
[2018-02-28] MEDS: (Insulin Pump Cartridge [Insulin Pump] 1 DEVICE) SQ SCH (22:07)
[2018-03-01] MEDS: 0.9 % Sodium Chloride 1,000 ML IVC SCH ×3 (01:26→22:53)
[2018-03-01 01:59] LABS: Basophils % 0.1 %; Eosinophils # 0.1 K/mcL (0.0-0.6); Eosinophils % 0.4 %; Hematocrit 32.6 % (35.3-44.9); Hemoglobin 10.7 g/dL (11.5-15.4); Immature Granulocytes % 0.7 % (0-4); Lymphocytes # 0.4 K/mcL (0.6-4.6); Lymphocytes % 2.5 %; Mean Corpuscular HGB Conc 32.8 g/dL (31.6-35.5); Mean Corpuscular Hemoglobin 29.7 pg (28.0-33.3); Mean Corpuscular Volume 90.6 fL (83.0-100.0); Monocytes # 0.5 K/mcL (0.0-1.3); Neutrophils # 13.9 K/mcL (1.6-8.9); Platelet Count 275 K/mcL (140-400); Red Cell Distribution Width 13.7 % (11.5-14.5); Segmented Neutrophils % 93.3 %
[2018-03-01 02:19] LABS: Albumin 3.4 g/dL (3.5-5.7); Bilirubin,Total 0.4 mg/dL (0.3-1.0); Calcium 8.3 mg/dL (8.6-10.3); Globulin 3.4 g/dL (2.4-3.5); Potassium 3.5 mEq/L (3.5-5.1); Total Protein 6.8 g/dL (6.4-8.9)
[2018-03-01] MEDS: Ipratropium/Albuterol Neb 3 ML IH SCH ×2 (04:23→11:05)
[2018-03-01] MEDS: Piperacillin/Tazobactam 3.375 GM in 0.9 % Sodium Chloride Mini Bag 100 ML IVPB SCH ×2 (05:47→18:45)
[2018-03-01] MEDS: *HR* Heparin 5,000 UNIT/ML VIAL SQ SCH ×2 (05:49→17:13)
[2018-03-01] MEDS: Folic Acid 1 MG TABLET PO SCH (08:59)
[2018-03-01] MEDS: Cholecalciferol (D-3) 1,000 UNIT TABLET PO SCH (09:00)
[2018-03-01] MEDS: Aspirin Enteric Coated 81 MG Tablet PO SCH (09:00)
--- NOTE | 2018-03-01 09:57 | Internal Med Progress Note ---
<Yobani Garcia W - Last Filed: 03/01/18 15:12> Hospitalist Progress Note - Encounter Date of Encounter: 03/01/18 Time of Encounter: 09:55 - Subjective Interval History: Patient reports she is feeling slightly better today after a good night sleep. Patient still reports a nonproductive cough but states it is getting better. Patient still short of breath states it is getting better she feels like she would not need her oxygen today. She reports less discharge from her eyes denies any vomiting, diarrhea, nausea, fever, chills, night sweats, weakness, dysuria. Patient's sodium still low at 130, hemoglobin 10.7, WBC 14.9 trending down. - Exam Vitals: Temp Pulse Resp BP Pulse Ox 97.8 F 76 15 129/61 96 03/01/18 06:00 03/01/18 06:00 03/01/18 06:00 03/01/18 06:00 03/01/18 06:00 Exam: Gen: Patient resting in bed, coughing significantly, mild distress HEENT: PERRLA, EOMI, matting of eyelids, conjuctival injection, no lymphadenopathy Cardio: RRR no m/r/g Pulm: CTA b/l diffuse expiratory wheezing more noticeable in the bases no rales Abd: BS x4, no TTP, no organomegaly Neuro: CN II-XII intact, normal posture, MSK: 5/5 strength UE b/l, 1 + pitting edema b/l LE - Assessment and Plan (1) MIKE (acute kidney injury) Current Visit: Yes Status: Acute Assessment and Plan: MIKE on admission w/creatinine of 4.02 and GFR of 11 Most likely due to ATN from dehydration Creatinine this am was 2.8 No urine output for 24 hours before admission Retroperitonel US found no evidence of hydronephrosis or nephrolithiasis Catheter measured 3250 ml output Patient was on MTX and Xeljanz Patient responded well to fluid bolus Plan -Hold Chlorthalidone, MTX and Xeljanz -Avoid nephrotixins -Continue fluid hydration -D/C byrne -Nephro consulted appreciate recs (2) Vomiting and diarrhea Current Visit: Yes Status: Acute Assessment and Plan: Presented with vomiting and diarrhea over the past 4 days Loose bowel movement this am Plan -IVP Phenergan 12.5 mg q6 prn for nausea -Monitor bowel movements to determine if any intervention is needed (3) Elevated troponin Current Visit: Yes Status: Acute Assessment and Plan: Acutely elevated troponin of 0.15 on admission Trending down .12, 0.9 likely demand ischemia denies CP Plan -Continue tele (4) Drop in hemoglobin Current Visit: Yes Status: Acute Assessment and Plan: Acute drop in Hgb to 10.4. on admission currently 10.7 denies hx of anemia. Likely from patients dehydrated state Monitor H/H (5) Hyponatremia Current Visit: Yes Status: Acute Assessment and Plan: Acute hyponatremia of 132 on admission. 130 today Most likely dry d/t current MIKE and lack of urine output. Continue to monitor Continue fluid hydration (6) Elevated brain natriuretic peptide (BNP) level Current Visit: Yes Status: Acute Assessment and Plan: BNP of 325 on admission. No hx of CHF, no pedal edema CXR shows no acute process Most likely d/t current MIKE. Will continue to monitor pt. for signs of fluid overload. (7) Asthma Current Visit: Yes Status: Chronic Assessment and Plan: Hx of chronic asthma. Pt. admitted w/SOB. Supplemental O2 w/titration and SpO2 monitoring. DuoNebs every 6 hours scheduled. Continue pts. inhalers PRN. (8) Diabetes Current Visit: Yes Status: Chronic Assessment and Plan: Hx of chronic diabetes controlled by personal insulin pump. Blood glucose 49 this am We will continue patient's insulin pump discontinue low-dose correction sliding scale (9) HTN (hypertension) Current Visit: Yes Status: Chronic Assessment and Plan: History of chronic HTN Continue carvedilol. Hold chlorthalidone amd lisinopril due to current MIKE. (10) HLD (hyperlipidemia) Current Visit: Yes Status: Chronic Assessment and Plan: Hx of chronic HLD. Continue Crestor. (11) GERD (gastroesophageal reflux disease) Current Visit: Yes Status: Chronic Assessment and Plan: Known history of GERD continue Nexium (12) Rheumatoid arthritis Current Visit: Yes Status: Chronic Assessment and Plan: Hx of chronic RA. Pt. takes Xeljanz and methotrexate. Will hold both due to patient's current MIKE. (13) DVT prophylaxis Current Visit: Yes Status: Acute Assessment and Plan: Heparin SQ (14) Pneumonia Current Visit: Yes Status: Suspected Assessment and Plan: Chest CT found bl opacifications suspect for multifocal pneumonia Patient has persistent cough with associated SOB History of asthma with diffuse expiratory wheezing on exam Cough more productive today Was on MTX and Xeljanz WBC count 16.7 now 14.9 today Plan -Zosyn, vancomycin and levaquin added day 2 -Duonebs q6, albuterol prn, Qvar 1 puff BID - ID consult appreciate recs - Time Spent with Patient Total time spent is greater than 50% in coordination of care (as documented) at patient's floor/unit and/or counseling patient: Internal Medicine: Result - Labs CBC & Chem 7: 03/01/18 01:29 03/01/18 01:29 Labs: Short CBC 03/01/18 Range/Units 01:29 WBC 14.9 H (4.3-11.1) K/mcL Hgb 10.7 L (11.5-15.4) g/dL Hct 32.6 L (35.3-44.9) % Plt Count 275 (140-400) K/mcL Neutrophils # 13.9 H (1.6-8.9) K/mcL BMP 03/01/18 01:29 Sodium 130 L Potassium 3.5 Chloride 94 L Carbon Dioxide 23 BUN 55 H Creatinine 2.80 H Glucose 88 Calcium 8.3 L Liver Function 03/01/18 Range/Units 01:29 Total Bilirubin 0.4 (0.3-1.0) mg/dL AST 37 (13-39) Units/L ALT 28 (7-52) Units/L Alkaline Phosphatase 101 (34-104) Units/L Albumin 3.4 L (3.5-5.7) g/dL - ABG Interpretation ABG results: PT/INR, D-dimer PT 12.2 Seconds (9.4-12.1) H 02/27/18 15:02 Consult Discharge Plan - Plan Referrals: Yuko Washingtno, ANIMAL RESCUER [Primary Care Provider] - <Judson Castaneda - Last Filed: 03/01/18 19:53> Hospitalist Progress Note - Encounter Date of Encounter: 03/01/18 - Exam Vitals: Temp Pulse Resp BP Pulse Ox 97.9 F 88 15 134/64 94 03/01/18 15:00 03/01/18 15:00 03/01/18 15:00 03/01/18 15:00 03/01/18 15:00 - Assessment and Plan (1) Pneumonia Current Visit: Yes Status: Suspected (2) Acute renal failure Current Visit: Yes Status: Suspected (3) Vomiting and diarrhea Current Visit: Yes Status: Resolved (4) Elevated troponin Current Visit: Yes Status: Acute (5) MIKE (acute kidney injury) Current Visit: Yes Status: Acute (6) Drop in hemoglobin Current Visit: Yes Status: Acute (7) Hyponatremia Current Visit: Yes Status: Acute (8) Elevated brain natriuretic peptide (BNP) level Current Visit: Yes Status: Acute (9) Asthma Current Visit: Yes Status: Chronic (10) Diabetes Current Visit: Yes Status: Chronic (11) HLD (hyperlipidemia) Current Visit: Yes Status: Chronic (12) HTN (hypertension) Current Visit: Yes Status: Chronic (13) GERD (gastroesophageal reflux disease) Current Visit: Yes Status: Chronic (14) Rheumatoid arthritis Current Visit: Yes Status: Chronic (15) DVT prophylaxis Current Visit: Yes Status: Acute - Time Spent with Patient Total time spent is greater than 50% in coordination of care (as documented) at patient's floor/unit and/or counseling patient: Internal Medicine: Result - Labs CBC & Chem 7: 03/01/18 01:29 03/01/18 01:29 Labs: Short CBC 03/01/18 Range/Units 01:29 WBC 14.9 H (4.3-11.1) K/mcL Hgb 10.7 L (11.5-15.4) g/dL Hct 32.6 L (35.3-44.9) % Plt Count 275 (140-400) K/mcL Neutrophils # 13.9 H (1.6-8.9) K/mcL BMP 03/01/18 01:29 Sodium 130 L Potassium 3.5 Chloride 94 L Carbon Dioxide 23 BUN 55 H Creatinine 2.80 H Glucose 88 Calcium 8.3 L Liver Function 03/01/18 Range/Units 01:29 Total Bilirubin 0.4 (0.3-1.0) mg/dL AST 37 (13-39) Units/L ALT 28 (7-52) Units/L Alkaline Phosphatase 101 (34-104) Units/L Albumin 3.4 L (3.5-5.7) g/dL - ABG Interpretation ABG results: PT/INR, D-dimer PT 12.2 Seconds (9.4-12.1) H 02/27/18 15:02 - Attending Attestation I examined this patient and my medical decision-making was reviewed with the Resident Physician on 03/01/18. I agree with the documented findings, disposition and treatment plan as described except to the extent set forth below. Ms Moralez is currently admitted for pneumonia in immunocompromised state. She remains moderate to high risk due to potential for worsening clinical status. Ms Moralez is feeling a little better today. No fever or chills. Face swelling continues to slowly improve. Still with cough and congestion. Renal function slowly improving . Exam Alert Comfortable Mucus membranes dry Heart not tachy Still with rhonchi bilaterally Abd soft No edema Facial swelling improving. I/P 1. Pneumonia 2. Asthma 3. MIKE Further diagnoses and plan as above. <Yobani Garcia W - Last Filed: 03/01/18 15:12> (7) Asthma Qualifiers: Asthma severity: unspecified severity Asthma persistence: unspecified Asthma complication type: with acute exacerbation Qualified Code(s): J45.901 - Unspecified asthma with (acute) exacerbation (8) Diabetes Qualifiers: Diabetes mellitus type: type 1 Diabetes mellitus complication status: with hyperglycemia Qualified Code(s): E10.65 - Type 1 diabetes mellitus with hyperglycemia (9) HTN (hypertension) Qualifiers: Hypertension type: essential hypertension Qualified Code(s): I10 - Essential (primary) hypertension (10) HLD (hyperlipidemia) Qualifiers: Hyperlipidemia type: mixed hyperlipidemia Qualified Code(s): E78.2 - Mixed hyperlipidemia (11) GERD (gastroesophageal reflux disease) Qualifiers: Esophagitis presence: esophagitis presence not specified Qualified Code(s): K21.9 - Gastro-esophageal reflux disease without esophagitis (12) Rheumatoid arthritis Qualifiers: Rheumatoid arthritis location: unspecified site Rheumatoid factor presence: unspecified presence Qualified Code(s): M06.9 - Rheumatoid arthritis, unspecified (14) Pneumonia Qualifiers: Pneumonia type: due to Pneumococcus Laterality: bilateral Lung location: lower lobe of lung Qualified Code(s): J13 - Pneumonia due to Streptococcus pneumoniae <Judson Castaneda - Last Filed: 03/01/18 19:53> (1) Pneumonia Qualifiers: Pneumonia type: due to Pneumococcus Laterality: bilateral Lung location: lower lobe of lung Qualified Code(s): J13 - Pneumonia due to Streptococcus pneumoniae (2) Acute renal failure Qualifiers: Acute renal failure type: with acute tubular necrosis Qualified Code(s): N17.0 - Acute kidney failure with tubular necrosis (9) Asthma Qualifiers: Asthma severity: moderate Asthma complication type: with acute exacerbation Qualified Code(s): J45.41 - Moderate persistent asthma with (acute) exacerbation (10) Diabetes Qualifiers: Diabetes mellitus type: type 1 Diabetes mellitus complication status: with hyperglycemia Qualified Code(s): E10.65 - Type 1 diabetes mellitus with hyperglycemia (11) HLD (hyperlipidemia) Qualifiers: Hyperlipidemia type: mixed hyperlipidemia Qualified Code(s): E78.2 - Mixed hyperlipidemia (12) HTN (hypertension) Qualifiers: Hypertension type: essential hypertension Qualified Code(s): I10 - Essential (primary) hypertension (13) GERD (gastroesophageal reflux disease) Qualifiers: Esophagitis presence: esophagitis presence not specified Qualified Code(s): K21.9 - Gastro-esophageal reflux disease without esophagitis (14) Rheumatoid arthritis Qualifiers: Rheumatoid arthritis location: unspecified site Rheumatoid factor presence: unspecified presence Qualified Code(s): M06.9 - Rheumatoid arthritis, unspecified
[2018-03-01] MEDS: Beclomethasone 80mcg MDI IH SCH ×2 (11:05→20:10)
--- NOTE | 2018-03-01 12:44 | Nephrology Progress Note ---
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 at this time Continue to avoid nephrotoxins if possible US of kidney and CT abd/p results noted (2) Hyponatremia Status: Resolved sodium improving at 130, continue NS Continue sodium in diet (3) Rheumatoid arthritis Status: Chronic immunosuppressants on hold for now Qualifiers: Rheumatoid arthritis location: unspecified site Rheumatoid factor presence : unspecified presence Qualified Code(s): M06.9 - Rheumatoid arthritis, unspecified (4) Pneumonia Status: Suspected Abx per primary team Qualifiers: Pneumonia type: due to other aerobic Gram-negative bacteria Laterality: bilateral Lung location: lower lobe of lung Qualified Code(s): J15.6 - Pneumonia due to other Gram-negative bacteria Subjective Interval history: Pt seen and examined feeling better slowly. Eager to go home. at bedside. Objective - Vital Signs Vital signs: Vital Signs Temp Pulse Resp BP Pulse Ox 03/01/18 11:36 97.9 F 77 15 124/64 97 03/01/18 11:05 16 98 03/01/18 06:00 97.8 F 76 15 129/61 96 03/01/18 04:26 97.8 F 75 15 123/58 91 03/01/18 00:13 98.4 F 72 16 123/61 95 02/28/18 22:43 16 96 02/28/18 21:16 97.9 F 72 16 148/66 96 Intake and Output 02/28/18 03/01/18 03/01/18 23:59 07:59 15:59 Intake Total 1100 / 1220 0 / 0 1660 / 1660 Output Total 0 / 0 3250 / 3250 900 / 900 Balance 1100 / 1220 -3250 / -3250 760 / 760 Intake: IV Fluids 1100 / 1100 1000 / 1000 0.9 % Sodium Chloride 1,000 ML 1000 / 1000 1000 / 1000 @ 125 mls/hr IVC .Q8H ELLA Rx#: [id number] Zosyn 3.375 GM In 0.9 % Sodium 100 / 100 Chloride (Mini-Bag +) 100 ML @ 25 mls/hr IVPB Q12HR LELA Rx#: [id number] Oral 0 / 120 0 / 0 660 / 660 Output: Urine 0 / 0 Catheter 3250 / 3250 900 / 900 Other: Meal Breakfast Percent of Meal Consumed 100% Stool Size Small Stool Consistency liquid Stool Color Brown # Bowel Movements 1 Weight 116.2 kg Blood Glucose* 207 50 151 Patient Weight 03/01/18 23:59 Weight 116.2 kg - General Appearance General appearance: Present: well-developed, well-nourished EENT: Present: ATNC, mucous membranes moist Neck: Present: no JVD, supple Additional Comments: good areation with decreased BS bases bilat Cardiology: Present: no edema, normal S1, normal S2 Gastrointestinal: Present: no tenderness, no guarding Integumentary: Present: warm and dry Neurologic: Present: no focal deficit Musculoskeletal: Present: no deformities Psychiatric: Present: mood/affect appropriate, cooperative - Lab 03/04/18 07:00 03/04/18 07:00 Most recent lab results Calcium 8.3 mg/dL (8.6-10.3) L 03/01/18 01:29 Magnesium 1.9 mg/dL (1.6-2.6) 02/28/18 03:50 Urine Creatinine 50 mg/dL 02/28/18 18:46 Urine Sodium 23.5 mEq/L 02/28/18 18:46 Consult Discharge Plan - Plan Additional Instructions: Please follow up with : Dr. Adams (Dr. Kin Lira) for kidneys Dr. Elle Pickett for infectious disease Referrals: Yuko Washington, CROSSING GATEMAN [Primary Care Provider] - (Follow up in 1-2 weeks) Prescriptions: levoFLOXacin [Levaquin] 750 mg PO Q48H #3 tablet predniSONE [PredniSONE] 40 mg PO DAILY #4 tablet
[2018-03-01] MEDS: LEVOFLOXACIN 750 MG/150 ML IVPB SCH (17:13)
[2018-03-01] MEDS ORDERED: Aminoglycoside Consult 1 EACH MC ONE (18:17)
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
[2018-03-01] MEDS: (Insulin Pump Cartridge [Insulin Pump] 1 DEVICE) SQ SCH (21:05)
[2018-03-02 05:08] LABS: Basophils % 0.1 %; Eosinophils # 0.1 K/mcL (0.0-0.6); Eosinophils % 1.2 %; Hematocrit 30.5 % (35.3-44.9); Immature Granulocytes % 0.9 % (0-4); Lymphocytes # 0.2 K/mcL (0.6-4.6); Lymphocytes % 2.1 %; Mean Corpuscular HGB Conc 32.8 g/dL (31.6-35.5); Mean Corpuscular Hemoglobin 30.3 pg (28.0-33.3); Mean Corpuscular Volume 92.4 fL (83.0-100.0); Mean Platelet Volume 10.9 fL (9.4-12.4); Monocytes # 0.2 K/mcL (0.0-1.3); Monocytes % 2.3 %; Neutrophils # 9.8 K/mcL (1.6-8.9); Platelet Count 247 K/mcL (140-400); Red Cell Distribution Width 14.1 % (11.5-14.5); Segmented Neutrophils % 93.4 %
[2018-03-02] MEDS: Piperacillin/Tazobactam 3.375 GM in 0.9 % Sodium Chloride Mini Bag 100 ML IVPB SCH ×2 (05:28→16:32)
[2018-03-02] MEDS: *HR* Heparin 5,000 UNIT/ML VIAL SQ SCH ×2 (05:28→16:31)
[2018-03-02 05:30] LABS: Albumin 3.1 g/dL (3.5-5.7); Bilirubin,Total 0.3 mg/dL (0.3-1.0); Calcium 8.8 mg/dL (8.6-10.3); Potassium 3.6 mEq/L (3.5-5.1); Total Protein 6.1 g/dL (6.4-8.9)
[2018-03-02] MEDS ORDERED: Lidocaine Viscous Oral Soln 15 ML SOLUTION MM ONE (07:57)
[2018-03-02] MEDS ORDERED: *HR* Midazolam HCl 5 MG/5 ML VIAL IVP ONE ×2 (07:57→12:27)
[2018-03-02] MEDS ORDERED: Tetracaine/Benzocaine/Butamben 200MG/SPRAY (100SPY/BOT) MM ONE (07:57)
[2018-03-02] MEDS ORDERED: *HR* FentaNYL (PF) 100 MCG/2 ML VIAL IVP ONE (07:57)
--- NOTE | 2018-03-02 07:57 | Pre-Sedation Evaluation ---
Pre-sedation evaluation - Pre-sedation checklist Date of procedure: 03/02/18 Procedure: Bronchoscopy Recent Vitals: Last Vital Signs Temp 98.1 F 03/02/18 07:12 Pulse 77 03/02/18 07:12 Resp 16 03/02/18 07:12 BP 158/76 03/02/18 07:12 Pulse Ox 96 03/02/18 07:12 H&P (including ROS) documented in medical record: Yes Previous reaction to sedatives/anesthetics: No Dietary Status: NPO after Midnight Airway Assessment: Patient can open mouth completely, TMJ function normal Dentition: No loose teeth or bridges Possible difficult airway: Yes If Yes;: Morbid obesity ASA Classification *see protocol: CLASS II-Mild systemic disease Plan of Care: Pt appropriate candidate for procedure/moderate/conscious sedation , Risks/benefits of procedure/sedation discussed w/ patient/family Cardiac Registry (Cardio Only) - Functional Capacity - Clincal Frailty Scale
--- NOTE | 2018-03-02 07:59 | Pulmonology Consult Note ---
<Everardo Elam W - Last Filed: 03/02/18 09:17> Date of Encounter: 03/02/18 Medications and Allergies Albuterol Sulfate [Proair Hfa] 2 puff IH Q4H PRN 02/27/18 [History] Aspirin Enteric Coated [Aspirin EC] 81 mg PO DAILY 02/27/18 [History] Budesonide [Pulmicort Flexhaler 90mcg] 2 puff IH BID 02/27/18 [History] Calcium Carbonate [Calcium] 600 mg PO DAILY 02/27/18 [History] Carvedilol 12.5 mg PO BID 02/27/18 [History] Chlorthalidone 25 mg PO DAILY 02/27/18 [History] Cholecalciferol (D-3) [Vitamin D] 2,000 unit PO DAILY 02/27/18 [History] Esomeprazole Magnesium [Nexium] 20 mg PO DAILY 02/27/18 [History] Folic Acid 0.8 mg PO DAILY 02/27/18 [History] Insulin Pump Cartridge [Insulin Pump] 1 device SQ AD 02/27/18 [History] Lisinopril [Zestril] 40 mg PO DAILY 02/27/18 [History] Methotrexate [Otrexup] 17.5 mg PO TU 02/27/18 [History] Rosuvastatin [Crestor] 40 mg PO HS 02/27/18 [History] Tofacitinib Citrate [Xeljanz] 5 mg PO BID 02/27/18 [History] 3 Allergy/AdvReac Type Severity Reaction Status Date / Time fluoxetine [From Prozac] Allergy Dizziness Verified 02/27/18 16:55 All Systems: The remainder of the systems were reviewed and are negative Physical Examination Vital Signs: Vital Signs, Last 4 Hours Temp Pulse Resp BP Pulse Ox 03/02/18 07:12 98.1 F 77 16 158/76 96 Results - Laboratory Findings CBC and BMP: 03/02/18 04:49 03/02/18 04:49 PT/INR, D-dimer PT 12.2 Seconds (9.4-12.1) H 02/27/18 15:02 Abnormal lab findings: Abnormal lab results RBC 3.30 M/mcL (3.82-4.97) L 03/02/18 04:49 Hgb 10.0 g/dL (11.5-15.4) L 03/02/18 04:49 Hct 30.5 % (35.3-44.9) L 03/02/18 04:49 Neutrophils # 9.8 K/mcL (1.6-8.9) H 03/02/18 04:49 Lymphocytes # 0.2 K/mcL (0.6-4.6) L 03/02/18 04:49 PT 12.2 Seconds (9.4-12.1) H 02/27/18 15:02 BUN 42 mg/dL (6-20) H 03/02/18 04:49 Creatinine 2.39 mg/dL (0.60-1.20) H 03/02/18 04:49 Est GFR ( Amer) 25 (> 60) L 03/02/18 04:49 Est GFR (Non-Af Amer) 21 (> 60) L 03/02/18 04:49 Glucose 113 mg/dL (70-105) H 03/02/18 04:49 POC Glucose 191 mg/dL (70-99) H 03/01/18 20:17 Uric Acid 9.3 mg/dL (2.3-7.6) H 02/28/18 03:50 Creatine Kinase 577 Units/L (30-223) H 02/28/18 03:50 Troponin I 0.09 ng/mL (< 0.04) H* 02/28/18 03:50 B-Natriuretic Peptide 325 pg/mL (Less than 100) H 02/27/18 15:01 Serum Total Protein 6.1 g/dL (6.4-8.9) L 03/02/18 04:49 Albumin 3.1 g/dL (3.5-5.7) L 03/02/18 04:49 Albumin/Globulin Ratio 1.0 (1.1-2.2) L 03/02/18 04:49 Urine Clarity Cloudy (Clear) A 02/27/18 23:55 Urine Protein 30 mg/dL (Neg-Trace) H 02/27/18 23:55 Urine Blood Moderate (Negative) H 02/27/18 23:55 Urine Microscopic RBC 3-5 per hpf (0-3) H 02/27/18 23:55 Urine Microscopic WBC 15-30 per hpf (0-3) H 02/27/18 23:55 Ur Squamous Epith Cells Many per lpf (None-Few) H 02/27/18 23:55 Urine Bacteria Moderate per hpf (None-Few) H 02/27/18 23:55 Granular Casts Few per lpf (None Seen) H 02/27/18 23:55 - Microbiology Findings Microbiology Findings: Microbiology, Last 48 Hours 03/01/18 19:58 Legionella Antigen - Final Urine,Clean Catch Streptococcus pneumoniae Antigen (M - Final - Clinical Findings Intake & Output: Intake & Output 03/01/18 03/02/18 03/02/18 23:59 07:59 15:59 Intake Total 1520 / 1520 Output Total 1400 / 1400 900 / 900 800 / 800 Balance 120 / 120 -900 / -900 -800 / -800 Weight 116.4 kg Consult Discharge Plan - Plan Referrals: Yuko Washington, [employer] [Primary Care Provider] - - Attending Attestation I examined this patient and my medical decision-making was reviewed with the Resident Physician. I agree with the documented findings, disposition and treatment plan as described except to the extent set forth below. We independently had [id number] contact with the patient Patient seen and examined at bedside Labs, radiology, chart personally reviewed. Impression: PNA Asthma with Acute Exacerbation RA with immunocompromised state MIKE with evidence of Cardiopulmonary syndrome Recs: -Agree with antibiotics appreciated infectious disease recommendations I would evaluate the patient possibility of cryptococcal/fungal process although I think this is less likely. -A bronchoscopy is recommended. The procedure , risks, benefits, complications, and expected outcomes have been reviewed. Benefits of diagnosis, as well as risks to include bleeding, infection, pneumothorax which may require surgical intervention, and in a small population. The patient is aware that sometimes test is nondiagnostic. Discussed with patient and agrees to proceed. -Enteral steroids 40 mg of prednisone daily for 5 day burst -Schedule bronchodilators -Start Symbicort 80/4.5 2 puffs twice a day -Evaluation of MIKE/management per nephrology service <Florencio Wynn - Last Filed: 03/02/18 11:01> Date of Encounter: 03/02/18 Time of Encounter: 07:58 Assessment and Plan (1) Pneumonia Current Visit: Yes Status: Suspected Likely community-acquired, patient is at risk for atypical infections including fungal infections given her immunocompromised state. Infectious evaluation has thus far been negative, recommend bronchoscopy for airway inspection and BAL for culture. Discussed with patient agrees to proceed. Patient is currently nothing by mouth. Qualifiers: Pneumonia type: due to Pneumococcus Laterality: bilateral Lung location: lower lobe of lung Qualified Code(s): J13 - Pneumonia due to Streptococcus pneumoniae (2) Asthma Current Visit: Yes Status: Acute With likely acute exacerbation. We will start prednisone 40 mg daily for 5 days. Scheduled albuterol. Stop Qvar and start Symbicort. Recommend outpatient follow-up with pulmonology. Qualifiers: Asthma severity: unspecified severity Asthma persistence: persistent Asthma complication type: with acute exacerbation Qualified Code(s): J45.901 - Unspecified asthma with (acute) exacerbation (3) Immunosuppressed status Current Visit: Yes Status: Acute Patient has increased risk for atypical and fungal infections. Plan for bronchoscopy as above. Fungal studies ordered. (4) Rheumatoid arthritis Current Visit: Yes Status: Chronic Patient currently on methotrexate and Xeljanz as an outpatient. Currently being held due to concerns for acute infection. 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 Further management per primary/nephrology. Qualifiers: Acute renal failure type: with acute tubular necrosis Qualified Code(s): N17.0 - Acute kidney failure with tubular necrosis History of Present Illness Consult date: 03/02/18 Requesting physician: Elle Pickett Reason for consult: pneumonia Chief complaint: Cough History of present illness: Patient is a 57-year-old female with history of rheumatoid arthritis, type 1 diabetes, asthma who presents with cough and dyspnea. Patient states that her cough began approximately week ago. Over the weekend it gradually worsened. She also developed some shortness of breath with this. She went and saw her PCP who gave her a course of amoxicillin which did not improve her symptoms. Patient also had decrease in her urinary output therefore she presented to the emergency department. She was found to be in acute renal failure with evidence of pneumonia on CT. Patient states that she feels about the same, possibly slightly better since admission. She denies productive cough, fever, chills, chest pain, abdominal pain. She reports occasional nausea and vomiting prior to admission but this is resolved. Patient reports she smoked for possible 20 years and quit 20 years ago Past Med Surg Social Fam HX - Past Medical History Medical history: asthma, diabetes, GERD, hyperlipidemia, hypertension, RA Psychiatric history: depression - Past Surgical History Surgical History: non-contributory Additional surgical history: hammer toes, RA nodule excision - Social History Smoking Status: Former smoker Packs per day: 1 PPD - Reports quitting in 1997 Smokeless Tobacco Status: No Alcohol use: occasionally Drug use: none - Family History Father Race: Family Member Ethnicity: Non- Living Status: Still Living Hx Family Medical Disorders: No Mother Race: Family Member Ethnicity: Non- Living Status: Still Living Hx Family Cardiac Disorders: Yes (HTN) Brother Race: Family Member Ethnicity: Non- Living Status: Still Living Hx Family Cardiac Disorders: Yes (HTN) Hx Family Endocrine Disorder: Yes (DM) Sister Race: Family Member Ethnicity: Non- Living Status: Age at : 20 Cause of : Automobile accident All Systems: The remainder of the systems were reviewed and are negative - Constitutional Constitutional: no chills, no fever(s) - EENT Nose, mouth and throat: nasal congestion, sore throat - Cardiovascular Cardiovascular: dyspnea, no chest pain, no edema, no palpitations - Respiratory Respiratory: cough, dyspnea, no wheezing - Gastrointestinal Gastrointestinal: nausea, vomiting - Genitourinary Genitourinary: no dysuria - Musculoskeletal Musculoskeletal: arthralgias, stiffness, no back pain - Neurological Neurological: no numbness, no tingling - Hematologic/Lymphatic Hematologic/Lymphatic: no easy bleeding, no easy bruising Physical Examination Vital Signs: Vital Signs, Last 4 Hours Temp Pulse Resp BP Pulse Ox 03/02/18 07:12 98.1 F 77 16 158/76 96 03/02/18 04:00 98 F 80 15 156/66 94 General appearance: no acute distress ENT: oropharynx moist Effort: normal Auscultation: bilateral: wheezes, rhonchi (bibasilar) Cardiovascular: regular rate and rhythm Gastrointestinal: normoactive bowel sounds, soft, non-tender Extremities: no cyanosis, no edema, no clubbing normal mental status, non-focal exam Results - Laboratory Findings CBC and BMP: 03/02/18 04:49 03/02/18 04:49 PT/INR, D-dimer PT 12.2 Seconds (9.4-12.1) H 02/27/18 15:02 Abnormal lab findings: Abnormal lab results RBC 3.30 M/mcL (3.82-4.97) L 03/02/18 04:49 Hgb 10.0 g/dL (11.5-15.4) L 03/02/18 04:49 Hct 30.5 % (35.3-44.9) L 03/02/18 04:49 Neutrophils # 9.8 K/mcL (1.6-8.9) H 03/02/18 04:49 Lymphocytes # 0.2 K/mcL (0.6-4.6) L 03/02/18 04:49 PT 12.2 Seconds (9.4-12.1) H 02/27/18 15:02 BUN 42 mg/dL (6-20) H 03/02/18 04:49 Creatinine 2.39 mg/dL (0.60-1.20) H 03/02/18 04:49 Est GFR ( Amer) 25 (> 60) L 03/02/18 04:49 Est GFR (Non-Af Amer) 21 (> 60) L 03/02/18 04:49 Glucose 113 mg/dL (70-105) H 03/02/18 04:49 POC Glucose 191 mg/dL (70-99) H 03/01/18 20:17 Uric Acid 9.3 mg/dL (2.3-7.6) H 02/28/18 03:50 Creatine Kinase 577 Units/L (30-223) H 02/28/18 03:50 Troponin I 0.09 ng/mL (< 0.04) H* 02/28/18 03:50 B-Natriuretic Peptide 325 pg/mL (Less than 100) H 02/27/18 15:01 Serum Total Protein 6.1 g/dL (6.4-8.9) L 03/02/18 04:49 Albumin 3.1 g/dL (3.5-5.7) L 03/02/18 04:49 Albumin/Globulin Ratio 1.0 (1.1-2.2) L 03/02/18 04:49 Urine Clarity Cloudy (Clear) A 02/27/18 23:55 Urine Protein 30 mg/dL (Neg-Trace) H 02/27/18 23:55 Urine Blood Moderate (Negative) H 02/27/18 23:55 Urine Microscopic RBC 3-5 per hpf (0-3) H 02/27/18 23:55 Urine Microscopic WBC 15-30 per hpf (0-3) H 02/27/18 23:55 Ur Squamous Epith Cells Many per lpf (None-Few) H 02/27/18 23:55 Urine Bacteria Moderate per hpf (None-Few) H 02/27/18 23:55 Granular Casts Few per lpf (None Seen) H 02/27/18 23:55 - Microbiology Findings Microbiology Findings: Microbiology, Last 48 Hours 03/01/18 19:58 Legionella Antigen - Final Urine,Clean Catch Streptococcus pneumoniae Antigen (M - Final - Clinical Findings Intake & Output: Intake & Output 03/01/18 03/01/18 03/02/18 15:59 23:59 07:59 Intake Total 1760 / 1760 1520 / 1520 Output Total 900 / 900 1400 / 1400 900 / 900 Balance 860 / 860 120 / 120 -900 / -900 Weight 116.4 kg
[2018-03-02] MEDS ORDERED: Ringers Solution, Lactated 1,000 ML IVC SCH (08:00)
[2018-03-02] MEDS: Folic Acid 1 MG TABLET PO SCH (08:42)
[2018-03-02] MEDS: Cholecalciferol (D-3) 1,000 UNIT TABLET PO SCH (08:42)
--- NOTE | 2018-03-02 08:47 | Internal Med Progress Note ---
<Yobani Garcia W - Last Filed: 03/02/18 11:37> Hospitalist Progress Note - Encounter Date of Encounter: 03/02/18 Time of Encounter: 08:45 - Subjective Interval History: Patient reports she is feeling the same today as compared last night. Feels like she needs to cough something up from her lungs which is unable to do so. Patient with slight improvement in her shortness of breath. Reports less discharge from her eyes. Denies any vomiting, diarrhea, nausea, fever, chills, night sweats, weakness, dysuria. Patient has not had any trouble with urination since Moser catheter was removed yesterday. White blood cell count decreased to 10.5 this morning. Hemoglobin 10.0 - Exam Vitals: Temp Pulse Resp BP Pulse Ox 98.1 F 77 16 158/76 96 03/02/18 07:12 03/02/18 07:12 03/02/18 07:12 03/02/18 07:12 03/02/18 07:12 Exam: Gen: Patient resting in bed, coughing, mild distress HEENT: Atraumatic, normocephalic, PERRLA, EOMI, matting of eyelids, conjuctival injection, no lymphadenopathy Cardio: RRR no m/r/g Pulm: CTA b/l diffuse expiratory wheezing more noticeable in the bases, no rales Abd: BS x4, no TTP, no organomegaly Neuro: CN II-XII intact, normal posture, MSK: 5/5 strength UE b/l, 1 + pitting edema b/l LE - Assessment and Plan (1) MIKE (acute kidney injury) Current Visit: Yes Status: Acute Assessment and Plan: MIKE on admission w/creatinine of 4.02 and GFR of 11 Most likely due to ATN from dehydration Cr2.39 No urine output for 24 hours before admission Retroperitonel US found no evidence of hydronephrosis or nephrolithiasis Patient was on MTX and Xeljanz Plan -Hold Chlorthalidone, MTX and Xeljanz -Avoid nephrotixins -Continue fluid hydration -Nephro consulted appreciate recs (2) Vomiting and diarrhea Current Visit: Yes Status: Resolved Assessment and Plan: Presented with vomiting and diarrhea over the past 4 days Still having some loose stools Plan - IVP Phenergan 12.5 mg q6 prn for nausea - Probiotic - Monitor bowel movements to determine if any intervention is needed (3) Drop in hemoglobin Current Visit: Yes Status: Acute Assessment and Plan: Acute drop in Hgb to 10.4. on admission currently 10.0 denies hx of anemia. Likely from patients dehydrated state Monitor H/H (4) Elevated troponin Current Visit: Yes Status: Acute Assessment and Plan: Acutely elevated troponin of 0.15 on admission Trending down 0.12, 0.9 likely demand ischemia denies CP Plan -Continue tele (5) Hyponatremia Current Visit: Yes Status: Acute Assessment and Plan: resolved 138 today continue to monitor (6) Asthma Current Visit: Yes Status: Chronic Assessment and Plan: Hx of chronic asthma. Pt. admitted w/SOB. Supplemental O2 w/titration and SpO2 monitoring. DuoNebs every 6 hours scheduled. Continue pts. inhalers PRN. (7) Elevated brain natriuretic peptide (BNP) level Current Visit: Yes Status: Acute Assessment and Plan: BNP of 325 on admission. No hx of CHF, no pedal edema CXR shows no acute process Most likely d/t current MIKE. Will continue to monitor pt. for signs of fluid overload. (8) Diabetes Current Visit: Yes Status: Chronic Assessment and Plan: Hx of chronic diabetes controlled by personal insulin pump. Blood glucose 49 this am We will continue patient's insulin pump discontinue low-dose correction sliding scale (9) HLD (hyperlipidemia) Current Visit: Yes Status: Chronic Assessment and Plan: Hx of chronic HLD. Continue Crestor. (10) HTN (hypertension) Current Visit: Yes Status: Chronic Assessment and Plan: History of chronic HTN Continue carvedilol. Hold chlorthalidone amd lisinopril due to current MIKE. (11) GERD (gastroesophageal reflux disease) Current Visit: Yes Status: Chronic Assessment and Plan: Known history of GERD continue Nexium (12) Rheumatoid arthritis Current Visit: Yes Status: Chronic Assessment and Plan: Hx of chronic RA. Pt. takes Xeljanz and methotrexate. Will hold both due to patient's current MIKE. (13) DVT prophylaxis Current Visit: Yes Status: Acute Assessment and Plan: Heparin SQ (14) Pneumonia Current Visit: Yes Status: Suspected Assessment and Plan: Chest CT found bl opacifications suspect for multifocal pneumonia Patient has persistent cough with associated SOB History of asthma with diffuse expiratory wheezing on exam Was on MTX and Xeljanz WBC count 16.7,14.9, 10.5 today ID and Pulm consulted appreciate recs Plan - Zosyn and levaquin day 3 - Vancomycin discontinued - Duonebs q6, albuterol prn, Qvar 1 puff BID - Fungal cultures ordered per pulm - Pulm to perform bronchoscopy - Time Spent with Patient Total time spent is greater than 50% in coordination of care (as documented) at patient's floor/unit and/or counseling patient: Internal Medicine: Result - Labs CBC & Chem 7: 03/02/18 04:49 03/02/18 04:49 Labs: Short CBC 03/02/18 Range/Units 04:49 WBC 10.5 (4.3-11.1) K/mcL Hgb 10.0 L (11.5-15.4) g/dL Hct 30.5 L (35.3-44.9) % Plt Count 247 (140-400) K/mcL Neutrophils # 9.8 H (1.6-8.9) K/mcL BMP 03/02/18 04:49 Sodium 138 Potassium 3.6 Chloride 105 Carbon Dioxide 25 BUN 42 H Creatinine 2.39 H Glucose 113 H Calcium 8.8 Liver Function 03/02/18 Range/Units 04:49 Total Bilirubin 0.3 (0.3-1.0) mg/dL AST 31 (13-39) Units/L ALT 26 (7-52) Units/L Alkaline Phosphatase 92 (34-104) Units/L Albumin 3.1 L (3.5-5.7) g/dL - ABG Interpretation ABG results: PT/INR, D-dimer PT 12.2 Seconds (9.4-12.1) H 02/27/18 15:02 Consult Discharge Plan - Plan Referrals: Yuko Washington, [employer] [Primary Care Provider] - <Judson Castaneda - Last Filed: 03/02/18 16:47> Hospitalist Progress Note - Encounter Date of Encounter: 03/02/18 - Exam Vitals: Temp Pulse Resp BP Pulse Ox 97.8 F 74 18 161/84 97 03/02/18 12:49 03/02/18 12:57 03/02/18 16:17 03/02/18 12:57 03/02/18 16:17 - Assessment and Plan (1) Pneumonia Current Visit: Yes Status: Suspected (2) Acute renal failure Current Visit: Yes Status: Suspected Assessment and Plan: Per renal (3) Vomiting and diarrhea Current Visit: Yes Status: Resolved (4) Hyponatremia Current Visit: Yes Status: Acute (5) Asthma Current Visit: Yes Status: Chronic (6) Diabetes Current Visit: Yes Status: Chronic (7) HLD (hyperlipidemia) Current Visit: Yes Status: Chronic (8) HTN (hypertension) Current Visit: Yes Status: Chronic (9) GERD (gastroesophageal reflux disease) Current Visit: Yes Status: Chronic (10) Rheumatoid arthritis Current Visit: Yes Status: Chronic (11) DVT prophylaxis Current Visit: Yes Status: Acute (12) Drop in hemoglobin Current Visit: Yes Status: Acute - Time Spent with Patient Total time spent is greater than 50% in coordination of care (as documented) at patient's floor/unit and/or counseling patient: Internal Medicine: Result - Labs CBC & Chem 7: 03/02/18 04:49 03/02/18 04:49 Labs: Short CBC 03/02/18 Range/Units 04:49 WBC 10.5 (4.3-11.1) K/mcL Hgb 10.0 L (11.5-15.4) g/dL Hct 30.5 L (35.3-44.9) % Plt Count 247 (140-400) K/mcL Neutrophils # 9.8 H (1.6-8.9) K/mcL BMP 03/02/18 04:49 Sodium 138 Potassium 3.6 Chloride 105 Carbon Dioxide 25 BUN 42 H Creatinine 2.39 H Glucose 113 H Calcium 8.8 Liver Function 03/02/18 Range/Units 04:49 Total Bilirubin 0.3 (0.3-1.0) mg/dL AST 31 (13-39) Units/L ALT 26 (7-52) Units/L Alkaline Phosphatase 92 (34-104) Units/L Albumin 3.1 L (3.5-5.7) g/dL - ABG Interpretation ABG results: PT/INR, D-dimer PT 12.2 Seconds (9.4-12.1) H 02/27/18 15:02 - Attending Attestation I examined this patient and my medical decision-making was reviewed with the Resident Physician on 03/02/18. I agree with the documented findings, disposition and treatment plan as described except to the extent set forth below. Ms Moralez is currently admitted for bilateral pneumonia in immunocompromised state. She remains moderate to high risk due to potential for worsening clinical status. Ms Moralez feels about the same as yesterday. No fever or chills. Still with a lot of cough. No overt diarrhea but has had soft stool. To have bronchoscopy today. Exam alert Comfortable up in chair Mucus membranes dry Heart reg and not tachy No wheeze though rhonchi present Abd soft and nontender No edema I/P 1. Pneumonia 2. Immunocompromised 3. DM Bronchoscopy today Further diagnoses and plan as above. <Yobani Garcia W - Last Filed: 03/02/18 11:37> (6) Asthma Qualifiers: Asthma severity: moderate Asthma persistence: persistent Asthma complication type: with acute exacerbation Qualified Code(s): J45.41 - Moderate persistent asthma with (acute) exacerbation (8) Diabetes Qualifiers: Diabetes mellitus type: type 1 Diabetes mellitus complication status: with hyperglycemia Qualified Code(s): E10.65 - Type 1 diabetes mellitus with hyperglycemia (9) HLD (hyperlipidemia) Qualifiers: Hyperlipidemia type: mixed hyperlipidemia Qualified Code(s): E78.2 - Mixed hyperlipidemia (10) HTN (hypertension) Qualifiers: Hypertension type: essential hypertension Qualified Code(s): I10 - Essential (primary) hypertension (11) GERD (gastroesophageal reflux disease) Qualifiers: Esophagitis presence: esophagitis presence not specified Qualified Code(s): K21.9 - Gastro-esophageal reflux disease without esophagitis (12) Rheumatoid arthritis Qualifiers: Rheumatoid arthritis location: unspecified site Rheumatoid factor presence: unspecified presence Qualified Code(s): M06.9 - Rheumatoid arthritis, unspecified (14) Pneumonia Qualifiers: Pneumonia type: due to Pneumococcus Laterality: bilateral Lung location: lower lobe of lung Qualified Code(s): J13 - Pneumonia due to Streptococcus pneumoniae <Judson Castaneda - Last Filed: 03/02/18 16:47> (1) Pneumonia Qualifiers: Pneumonia type: due to other aerobic Gram-negative bacteria Laterality: bilateral Lung location: lower lobe of lung Qualified Code(s): J15.6 - Pneumonia due to other Gram-negative bacteria (2) Acute renal failure Qualifiers: Acute renal failure type: with acute tubular necrosis Qualified Code(s): N17.0 - Acute kidney failure with tubular necrosis (5) Asthma Qualifiers: Asthma severity: moderate Asthma complication type: with acute exacerbation Qualified Code(s): J45.41 - Moderate persistent asthma with (acute) exacerbation (6) Diabetes Qualifiers: Diabetes mellitus type: type 1 Diabetes mellitus complication status: with hyperglycemia Qualified Code(s): E10.65 - Type 1 diabetes mellitus with hyperglycemia (7) HLD (hyperlipidemia) Qualifiers: Hyperlipidemia type: mixed hyperlipidemia Qualified Code(s): E78.2 - Mixed hyperlipidemia (8) HTN (hypertension) Qualifiers: Hypertension type: essential hypertension Qualified Code(s): I10 - Essential (primary) hypertension (9) GERD (gastroesophageal reflux disease) Qualifiers: Esophagitis presence: esophagitis presence not specified Qualified Code(s): K21.9 - Gastro-esophageal reflux disease without esophagitis (10) Rheumatoid arthritis Qualifiers: Rheumatoid arthritis location: unspecified site Rheumatoid factor presence: unspecified presence Qualified Code(s): M06.9 - Rheumatoid arthritis, unspecified
[2018-03-02] MEDS: Beclomethasone 80mcg MDI IH SCH (10:49)
[2018-03-02] MEDS: Budesonide/Formoterol 80/4.5 MDI IH SCH ×2 (10:49→19:43)
[2018-03-02] MEDS: Albuterol 2.5 MG/3 ML NEBULIZER IH SCH ×5 (11:10→23:52)
[2018-03-02] MEDS ORDERED: Lidocaine Viscous Oral Soln 15 ML SOLUTION ONE (12:28)
[2018-03-02] MEDS ORDERED: *HR* FentaNYL (PF) 100 MCG/2 ML VIAL ONE (12:28)
[2018-03-02] MEDS ORDERED: Albuterol 2.5 MG/3 ML NEBULIZER ONE (13:02)
--- NOTE | 2018-03-02 14:46 | Infectious Disease Progress No ---
Date of Encounter: 03/02/18 Time of Encounter: 14:46 - Assessment and Plan (1) Pneumonia Current Visit: Yes Status: Suspected bilateral lobes at the bases. concern for atypical pneumonia causative organism not clear RIP was negative check urine legionella and pneumococcal antigen - negative get sputum culture if possible Status post bronchoscopy, await [facility] report and BAL Continue Zosyn and levofloxacin Creatinine clearance up to 28 so will increase Zosyn to every 8 hours per pharmacy recommendations Monitor labs and for drug toxicity Qualifiers: Pneumonia type: due to Pneumococcus Laterality: bilateral Lung location: lower lobe of lung Qualified Code(s): J13 - Pneumonia due to Streptococcus pneumoniae (2) Immunosuppressed status Current Visit: Yes Status: Acute secondary to DM type 1 and RA on Xeljanz and methotrexate (3) Diabetes mellitus type 1 with complications Current Visit: Yes Status: Acute Diagnosed at age 16 has insulin pump complicated by diabetic retinopathy no diabetic nephropathy or neuropathy that she knows of (4) MIKE (acute kidney injury) Current Visit: Yes Status: Acute Etiology not clear. Could be secondary to infection versus ATN versus other. Awaiting nephrology recommendations. Creatinine continues to improve We will dose adjust antibiotics based on creatinine clearance of 28 (5) Rheumatoid arthritis Current Visit: Yes Status: Chronic Diagnosed 34 years ago effecting hands and feet currently on Xeljanz and methotrexate follows up with rheumatology at [place] Qualifiers: Rheumatoid arthritis location: unspecified site Rheumatoid factor presence : unspecified presence Qualified Code(s): M06.9 - Rheumatoid arthritis, unspecified - Subjective Interval history: Patient seen and examined. Seems to be doing well clinically. Just came back from bronchoscopy. Afebrile. WBC improved States her cough and breathing has improved No diarrhea Good appetite No chest pain or shortness of breath Infect Dis PN-Objective Data - Labs CBC & Chem 7: 03/02/18 04:49 03/02/18 04:49 Labs: Laboratory Results - last 24 hr 03/01/18 03/01/18 03/01/18 07:27 07:29 08:48 WBC RBC Hgb Hct MCV MCH MCHC RDW Plt Count MPV Immature Gran % Seg Neutrophils % Lymphocytes % Monocytes % Eosinophils % Basophils % Neutrophils # Lymphocytes # Monocytes # Eosinophils # Basophils # Sodium Potassium Chloride Carbon Dioxide BUN Creatinine Est GFR ( Amer) Est GFR (Non-Af Amer) BUN/Creatinine Ratio Glucose POC Glucose 48 L* 50 L 105 H Calculated Osmolality Calcium Total Bilirubin AST ALT Alkaline Phosphatase Serum Total Protein Albumin Globulin Albumin/Globulin Ratio Nasal Screen MRSA (PCR) 03/01/18 03/01/18 03/01/18 11:35 16:11 20:17 WBC RBC Hgb Hct MCV MCH MCHC RDW Plt Count MPV Immature Gran % Seg Neutrophils % Lymphocytes % Monocytes % Eosinophils % Basophils % Neutrophils # Lymphocytes # Monocytes # Eosinophils # Basophils # Sodium Potassium Chloride Carbon Dioxide BUN Creatinine Est GFR ( Amer) Est GFR (Non-Af Amer) BUN/Creatinine Ratio Glucose POC Glucose 151 H 207 H 191 H Calculated Osmolality Calcium Total Bilirubin AST ALT Alkaline Phosphatase Serum Total Protein Albumin Globulin Albumin/Globulin Ratio Nasal Screen MRSA (PCR) 03/01/18 03/02/18 03/02/18 21:45 04:49 04:49 WBC 10.5 RBC 3.30 L Hgb 10.0 L Hct 30.5 L MCV 92.4 MCH 30.3 MCHC 32.8 RDW 14.1 Plt Count 247 MPV 10.9 Immature Gran % 0.9 Seg Neutrophils % 93.4 Lymphocytes % 2.1 Monocytes % 2.3 Eosinophils % 1.2 Basophils % 0.1 Neutrophils # 9.8 H Lymphocytes # 0.2 L Monocytes # 0.2 Eosinophils # 0.1 Basophils # 0.0 Sodium 138 Potassium 3.6 Chloride 105 Carbon Dioxide 25 BUN 42 H Creatinine 2.39 H Est GFR ( Amer) 25 L Est GFR (Non-Af Amer) 21 L BUN/Creatinine Ratio 18 Glucose 113 H POC Glucose Calculated Osmolality 297 Calcium 8.8 Total Bilirubin 0.3 AST 31 ALT 26 Alkaline Phosphatase 92 Serum Total Protein 6.1 L Albumin 3.1 L Globulin 3.0 Albumin/Globulin Ratio 1.0 L Nasal Screen MRSA (PCR) Negative 03/02/18 03/02/18 07:14 11:26 WBC RBC Hgb Hct MCV MCH MCHC RDW Plt Count MPV Immature Gran % Seg Neutrophils % Lymphocytes % Monocytes % Eosinophils % Basophils % Neutrophils # Lymphocytes # Monocytes # Eosinophils # Basophils # Sodium Potassium Chloride Carbon Dioxide BUN Creatinine Est GFR ( Amer) Est GFR (Non-Af Amer) BUN/Creatinine Ratio Glucose POC Glucose 99 146 H Calculated Osmolality Calcium Total Bilirubin AST ALT Alkaline Phosphatase Serum Total Protein Albumin Globulin Albumin/Globulin Ratio Nasal Screen MRSA (PCR) Cultures: Cultures 03/01/18 19:58 Legionella Antigen - Final Urine,Clean Catch Streptococcus pneumoniae Antigen (M - Final Serology 03/01/18 Range/Units 21:45 Nasal Screen MRSA (PCR) Negative (Negative) Exam - Constitutional Vitals: Temp Pulse Resp BP Pulse Ox 97.8 F 74 18 161/84 94 03/02/18 12:49 03/02/18 12:57 03/02/18 12:57 03/02/18 12:57 03/02/18 12:57 General appearance: no acute distress, no febrile - Respiratory Respiratory exam: Present: CTAB, wheezes - Cardiovascular Cardiovascular exam: Present: RRR, +S1, +S2 - GI/Abdominal GI/Abdominal exam: Present: normal bowel sounds, soft. Absent: tenderness Consult Discharge Plan - Plan Referrals: Yuko Washington CANDLE POURER [Primary Care Provider] -
--- NOTE | 2018-03-02 16:23 | Nephrology Progress Note ---
Date of Encounter: 03/02/18 Time of Encounter: 16:00 - Assessment and Plan (1) MIKE (acute kidney injury) Status: Acute Scr continues to improve at 2.39, GFR 21 UOP great at 5550cc in the past 24hrs, ok to stop IVF as long as po fluids encouraged No acute indication for [employer]PORATE [employer] at this time Continue to avoid nephotoxins if possible (2) Hyponatremia Status: Resolved normalized at 138 (3) Rheumatoid arthritis Status: Chronic methotraxate and xeljanz on hold Qualifiers: Rheumatoid arthritis location: unspecified site Rheumatoid factor presence : unspecified presence Qualified Code(s): M06.9 - Rheumatoid arthritis, unspecified (4) Pneumonia Status: Suspected Per infectious disease and pulm Qualifiers: Pneumonia type: due to other aerobic Gram-negative bacteria Laterality: bilateral Lung location: lower lobe of lung Qualified Code(s): J15.6 - Pneumonia due to other Gram-negative bacteria Subjective Interval history: Pt seen and examined with interim events noted, no new complaints Objective - Vital Signs Vital signs: Vital Signs Temp Pulse Resp BP Pulse Ox 03/02/18 16:17 18 97 03/02/18 12:57 74 18 161/84 94 03/02/18 12:52 70 20 139/81 99 03/02/18 12:49 97.8 F 78 15 139/81 100 03/02/18 11:29 97.8 F 73 16 154/72 97 03/02/18 10:49 18 94 03/02/18 07:12 98.1 F 77 16 158/76 96 03/02/18 04:00 98 F 80 15 156/66 94 03/02/18 00:00 98 F 72 15 127/60 94 03/01/18 20:13 16 03/01/18 20:00 97.9 F 85 15 150/68 94 Intake and Output 03/02/18 03/02/18 03/02/18 07:59 15:59 23:59 Output Total 900 / 900 1150 / 1150 Balance -900 / -900 -1150 / -1150 Output: Urine 900 / 900 1150 / 1150 Other: # Voids 1 Weight 116.4 kg Blood Glucose* 99 146 Patient Weight 03/02/18 23:59 Weight 116.4 kg - General Appearance General appearance: Present: well-developed, well-nourished EENT: Present: ATNC, mucous membranes moist Neck: Present: no JVD, supple Additional Comments: good areation ant bilat Cardiology: Present: no edema, normal S1, normal S2 Gastrointestinal: Present: no tenderness, no guarding Integumentary: Present: warm and dry Neurologic: Present: no focal deficit Musculoskeletal: Present: no deformities Psychiatric: Present: mood/affect appropriate, cooperative - Lab 03/04/18 07:00 03/04/18 07:00 Most recent lab results Calcium 8.8 mg/dL (8.6-10.3) 03/02/18 04:49 Magnesium 1.9 mg/dL (1.6-2.6) 02/28/18 03:50 Urine Creatinine 50 mg/dL 02/28/18 18:46 Urine Sodium 23.5 mEq/L 02/28/18 18:46 Consult Discharge Plan - Plan Additional Instructions: Please follow up with : Dr. Adams (Dr. Kin Lira) for kidneys Dr. Elle Pickett for infectious disease Referrals: Yuko Washington, [employer] [Primary Care Provider] - (Follow up in 1-2 weeks) Prescriptions: levoFLOXacin [Levaquin] 750 mg PO Q48H #3 tablet predniSONE [PredniSONE] 40 mg PO DAILY #4 tablet
[2018-03-02] MEDS: Lactobacillus 1 EACH CAP.SPRINK PO SCH ×2 (16:31→20:57)
[2018-03-02] MEDS: predniSONE 20 MG TABLET PO SCH (16:31)
[2018-03-02] MEDS: Aspirin Enteric Coated 81 MG Tablet PO SCH (16:31)
[2018-03-02 18:10] LABS: Appearance of Body Fluid Cloudy (Clear); Volume of Body Fluid 20 mL
[2018-03-02] MEDS: 0.9 % Sodium Chloride 1,000 ML IVC SCH (20:57)
[2018-03-02] MEDS: (Insulin Pump Cartridge [Insulin Pump] 1 DEVICE) SQ SCH (20:58)
[2018-03-03] MEDS: Piperacillin/Tazobactam 3.375 GM in 0.9 % Sodium Chloride Mini Bag 100 ML IVPB SCH ×3 (00:07→17:59)
[2018-03-03] MEDS ORDERED: Albuterol 2.5 MG/3 ML NEBULIZER IH PRN (04:11)
[2018-03-03] MEDS: Albuterol 2.5 MG/3 ML NEBULIZER IH SCH (04:13)
[2018-03-03] MEDS: 0.9 % Sodium Chloride 1,000 ML IVC SCH (06:18)
[2018-03-03] MEDS: *HR* Heparin 5,000 UNIT/ML VIAL SQ SCH ×2 (06:18→17:54)
[2018-03-03 06:23] LABS: Basophils % 0.1 %; Eosinophils % 0.1 %; Hematocrit 30.8 % (35.3-44.9); Hemoglobin 9.7 g/dL (11.5-15.4); Immature Granulocytes % 1.2 % (0-4); Lymphocytes # 0.2 K/mcL (0.6-4.6); Lymphocytes % 1.9 %; Mean Corpuscular HGB Conc 31.5 g/dL (31.6-35.5); Mean Corpuscular Hemoglobin 29.2 pg (28.0-33.3); Mean Corpuscular Volume 92.8 fL (83.0-100.0); Monocytes # 0.1 K/mcL (0.0-1.3); Monocytes % 1.1 %; Neutrophils # 10.4 K/mcL (1.6-8.9); Platelet Count 288 K/mcL (140-400); Red Blood Count 3.32 M/mcL (3.82-4.97); Red Cell Distribution Width 14.2 % (11.5-14.5); Segmented Neutrophils % 95.6 %
--- NOTE | 2018-03-03 06:34 | Pulmonology Progress Note ---
Date of Encounter: 03/03/18 Time of Encounter: 06:34 Assessment and Plan (1) Pneumonia Current Visit: Yes Status: Suspected Unclear organism Status post bronchoscopy yesterday Initial cultures not suggestive of infection we will need 72 hours at least for final results I also sent to cytology for silver stain for possibility of PCP although this is seemingly very unlikely Fungal serologies pending as well I will defer to ID for further management of antimicrobials Qualifiers: Pneumonia type: due to other aerobic Gram-negative bacteria Laterality: bilateral Lung location: lower lobe of lung Qualified Code(s): J15.6 - Pneumonia due to other Gram-negative bacteria (2) Rheumatoid arthritis Current Visit: Yes Status: Chronic Immunosuppressive agents are currently on hold There is no clear indication of rheumatoid involvement in the lung at this point however she would likely benefit from high-resolution CT scan outpatient basis and pulmonary function testing Qualifiers: Rheumatoid arthritis location: unspecified site Rheumatoid factor presence : unspecified presence Qualified Code(s): M06.9 - Rheumatoid arthritis, unspecified (3) Asthma with exacerbation Current Visit: Yes Status: Acute Recommend 5 day burst of 40 mg of prednisone Continue scheduled ICS/LABA patient be discharged with this this can be de- escalated in the outpatient clinic Outpatient pulmonary follow-up Qualifiers: Asthma severity: unspecified severity Asthma persistence: persistent Qualified Code(s): J45.901 - Unspecified asthma with (acute) exacerbation Subjective Principal diagnosis: PNA Interval history: Patient has done well overnight she sitting up in chair and actually which looks much better than she did the previous day she says she does not have any complaints except she is noted some increased swelling in her hands as her immunosuppressive agents have been on hold Objective PUL Vital signs: Last Vital Signs Temp 98.1 F 03/03/18 04:00 Pulse 75 03/03/18 04:00 Resp 17 03/03/18 04:00 BP 167/82 03/03/18 04:00 Pulse Ox 97 03/03/18 04:00 General appearance: no acute distress Eyes: nonicteric ENT: oropharynx moist Neck: supple Effort: normal Auscultation: bilateral: clear Cardiovascular: regular rate and rhythm Gastrointestinal: normoactive bowel sounds, soft, non-tender Integumentary: normal Extremities: no clubbing, pink and warm, no ischemia or petechiae, edema (Trace bilateral) Musculoskeletal: no deformities normal mental status, non-focal exam mood appropriate Results - Laboratory Findings CBC and BMP: 03/03/18 05:24 03/03/18 05:24 PT/INR, D-dimer PT 12.2 Seconds (9.4-12.1) H 02/27/18 15:02 Abnormal lab findings: Abnormal lab results RBC 3.32 M/mcL (3.82-4.97) L 03/03/18 05:24 Hgb 9.7 g/dL (11.5-15.4) L 03/03/18 05:24 Hct 30.8 % (35.3-44.9) L 03/03/18 05:24 MCHC 31.5 g/dL (31.6-35.5) L 03/03/18 05:24 Neutrophils # 10.4 K/mcL (1.6-8.9) H 03/03/18 05:24 Lymphocytes # 0.2 K/mcL (0.6-4.6) L 03/03/18 05:24 PT 12.2 Seconds (9.4-12.1) H 02/27/18 15:02 BUN 42 mg/dL (6-20) H 03/02/18 04:49 Creatinine 2.39 mg/dL (0.60-1.20) H 03/02/18 04:49 Est GFR ( Amer) 25 (> 60) L 03/02/18 04:49 Est GFR (Non-Af Amer) 21 (> 60) L 03/02/18 04:49 Glucose 113 mg/dL (70-105) H 03/02/18 04:49 POC Glucose 147 mg/dL (70-99) H 03/02/18 20:01 Uric Acid 9.3 mg/dL (2.3-7.6) H 02/28/18 03:50 Creatine Kinase 577 Units/L (30-223) H 02/28/18 03:50 Troponin I 0.09 ng/mL (< 0.04) H* 02/28/18 03:50 B-Natriuretic Peptide 325 pg/mL (Less than 100) H 02/27/18 15:01 Serum Total Protein 6.1 g/dL (6.4-8.9) L 03/02/18 04:49 Albumin 3.1 g/dL (3.5-5.7) L 03/02/18 04:49 Albumin/Globulin Ratio 1.0 (1.1-2.2) L 03/02/18 04:49 Urine Clarity Cloudy (Clear) A 02/27/18 23:55 Urine Protein 30 mg/dL (Neg-Trace) H 02/27/18 23:55 Urine Blood Moderate (Negative) H 02/27/18 23:55 Urine Microscopic RBC 3-5 per hpf (0-3) H 02/27/18 23:55 Urine Microscopic WBC 15-30 per hpf (0-3) H 02/27/18 23:55 Ur Squamous Epith Cells Many per lpf (None-Few) H 02/27/18 23:55 Urine Bacteria Moderate per hpf (None-Few) H 02/27/18 23:55 Granular Casts Few per lpf (None Seen) H 02/27/18 23:55 Fluid Appearance Cloudy (Clear) A 03/02/18 13:15 - Microbiology Findings Microbiology Findings: Microbiology, Last 48 Hours 03/02/18 13:15 Respiratory Culture - Preliminary Right Lower Lobe Lung 03/02/18 08:21 Cryptococcal Antigen - Final Serum 03/01/18 19:58 Legionella Antigen - Final Urine,Clean Catch Streptococcus pneumoniae Antigen (M - Final - Clinical Findings Intake & Output: Intake & Output 03/02/18 03/02/18 03/03/18 15:59 23:59 07:59 Intake Total 340 / 340 1180 / 1180 Output Total 1150 / 1150 700 / 700 200 / 200 Balance -1150 / -1150 -360 / -360 980 / 980 Weight 116.8 kg Consult Discharge Plan - Plan Referrals: Yuko [place], FREIGHT COORDINATOR [Primary Care Provider] -
[2018-03-03 06:44] LABS: Albumin 3.1 g/dL (3.5-5.7); Albumin/Globulin Ratio 0.9 (1.1-2.2); Bilirubin,Total 0.3 mg/dL (0.3-1.0); Calcium 8.9 mg/dL (8.6-10.3); Globulin 3.5 g/dL (2.4-3.5); Potassium 3.6 mEq/L (3.5-5.1); Total Protein 6.6 g/dL (6.4-8.9)
[2018-03-03] MEDS: Budesonide/Formoterol 80/4.5 MDI IH SCH ×2 (07:42→22:58)
[2018-03-03] MEDS: Cholecalciferol (D-3) 1,000 UNIT TABLET PO SCH (10:16)
[2018-03-03] MEDS: predniSONE 20 MG TABLET PO SCH (10:16)
[2018-03-03] MEDS: Aspirin Enteric Coated 81 MG Tablet PO SCH (10:17)
[2018-03-03] MEDS: Folic Acid 1 MG TABLET PO SCH (10:18)
[2018-03-03] MEDS: Lactobacillus 1 EACH CAP.SPRINK PO SCH ×2 (10:18→21:37)
--- NOTE | 2018-03-03 10:50 | Internal Med Progress Note ---
<Reggie Palm P - Last Filed: 03/03/18 14:37> Date of Encounter: 03/03/18 Time of Encounter: 10:00 - Assessment and plan (1) MIKE (acute kidney injury) Current Visit: Yes Status: Acute Assessment and plan: MIKE on admission w/creatinine of 4.02 and GFR of 11 Most likely prerenal or ATN Most recent creatinine:2.19,BUN 34,K+3.6 , Na 138 Urine output has improved a lot Retroperitonel US found no evidence of hydronephrosis or nephrolithiasis Patient was on MTX and Xeljanz and he is on hold (2) Asthma with exacerbation Current Visit: Yes Status: Acute Assessment and plan: She has past medical history of asthma She has dry cough for last couple of days and mild fever couple of days back She is on IV antibiotics Supplemental O2 w/titration and SpO2 monitoring. Test for PCP and Legionella antigen negative Qualifiers: Asthma severity: unspecified severity Asthma persistence: persistent Qualified Code(s): J45.901 - Unspecified asthma with (acute) exacerbation (3) Hyponatremia Current Visit: Yes Status: Acute Assessment and plan: Her Hyponateremia has been resolved now Serum Na+ 138 (4) Vomiting and diarrhea Current Visit: Yes Status: Resolved Assessment and plan: She had nausea and vomiting before admission Now this has been improved , she doesn't complain nausea and vomiting (5) Upper respiratory infection Current Visit: Yes Status: Acute Assessment and plan: She had dry cough and mild grade of fever during admission ]Cough is still there but much better No fever She is on IV antiboiotic Levaquine and Zosyn Qualifiers: URI type: unspecified viral URI Qualified Code(s): J06.9 - Acute upper respiratory infection, unspecified - Subjective Interval history: Today is day 5th of admission .She is 57 years old female presented to the ED on 02/27 with SOB and no urine output for 24 hours. She is a known case of Asthma, DM-1 in insulin pump with retinoopathy and without nephropathy ,, recurrent UTI 5-6 times a year and used to treat with Nitrofurantoin for about a week,HTN, HLD, GERD.Patient reported to Ed for nonproductive cough for about a week , eyes matted shut, 2-3 episode of vomiting and 2-3 episodes of diarrhea before she presented here . Pt went to her PCP first for cough with nausea/ vomiting and diarrhea and was treated with amoxicillin on 02/26/18. She was found to have oxygen saturation of 87% she received a breathing treatment and was sent home. The symptoms didnot get better so reported to ER for cough , fatigue ,and decreased urine output. She admitted increasing SOB, cough, eyes matting shut and some weakness, but she denies rashes, Fever, chills, night sweats, abdominal pain, dysuria. patient was admitted with urinary catheter in situ for further evaluation and management as she had elevated, creatinine at 3.54, sodium 129, potassium 3.3, WBC count of 16.7. Chest CT found b/l focal opacities with concerns for multifocal pneumonia. Placed on Vancomycin, Zosyn, and Levofloxacin. Her broncospy was done and sputum sent for Cytology and fungal culture : all reports awaited. Cryptococcal antigen and Legionella antigen is negative. Today she is feeling well almost > 85% improvement since her admission here on Monday. Her dry cough is still there but much less, urination 5-6 times with clear urine with good volume.Her vitas are stable: 97.8F, 165/80, 96%, . WBC 10 , Hb 9.7 Na 138 , K 3.6, BUN 34, lactate 0.8 Glucose 162 , Urinalysis; cloudy with 15-20 pus cell/ HPF, urine out put 2.7 L yesterday. Now we have discontinued vancomycin and continued Levaquin and Zosyn X day 4. - Constitutional Vitals: Temp Pulse Resp BP Pulse Ox 97.8 F 76 18 165/80 96 03/03/18 06:34 03/03/18 06:34 03/03/18 07:43 03/03/18 06:34 03/03/18 07:43 General appearance: Present: cooperative, mild distress (SOB/cough), A&O X 3, pleasant, obese, answers questions appropriately - Head Head exam: Present: atraumatic, normal inspection, normocephalic - Eye Additional comments: Mild redeness without discharge - Respiratory Additional comments: Equal chest expansion both side, equal air entry both side, very occasional rales present , no wheezes, - Cardiovascular Additional comments: Normal rate and rhythm, S1S2 normal, No murmur and rubs - GI/Abdominal GI/Abdominal exam: Present: normal bowel sounds, soft, no peritoneal signs - Extremities Exam Additional comments: Mild bilateral pedal edema , no calf swelling - Neurological Exam Neurological exam: Present: normal gait, oriented X3, reflexes normal, no focal deficits - Psychiatric Psychiatric exam: Present: normal affect Internal Medicine: Result - Labs CBC & Chem 7: 03/03/18 05:24 03/03/18 05:24 Labs: Short CBC 03/03/18 Range/Units 05:24 WBC 10.8 (4.3-11.1) K/mcL Hgb 9.7 L (11.5-15.4) g/dL Hct 30.8 L (35.3-44.9) % Plt Count 288 (140-400) K/mcL Neutrophils # 10.4 H (1.6-8.9) K/mcL BMP 03/03/18 05:24 Sodium 138 Potassium 3.6 Chloride 102 Carbon Dioxide 26 BUN 34 H Creatinine 2.19 H Glucose 162 H Calcium 8.9 Liver Function 03/03/18 Range/Units 05:24 Total Bilirubin 0.3 (0.3-1.0) mg/dL AST 23 (13-39) Units/L ALT 22 (7-52) Units/L Alkaline Phosphatase 89 (34-104) Units/L Albumin 3.1 L (3.5-5.7) g/dL - ABG Interpretation ABG results: PT/INR, D-dimer PT 12.2 Seconds (9.4-12.1) H 02/27/18 15:02 Consult Discharge Plan - Plan Referrals: Yuko Washington, SQUILGEER [Primary Care Provider] - <Judson Castaneda - Last Filed: 03/03/18 16:09> Date of Encounter: 03/03/18 - Assessment and plan (1) Pneumonia Current Visit: Yes Status: Suspected Assessment and plan: Currently on IV Zosyn and Levaquin with slow improvement. Cultures from bronch pending. Qualifiers: Pneumonia type: due to other aerobic Gram-negative bacteria Laterality: bilateral Lung location: lower lobe of lung Qualified Code(s): J15.6 - Pneumonia due to other Gram-negative bacteria (2) Acute renal failure Current Visit: Yes Status: Suspected Assessment and plan: Slowly resolving. Will stop IV fluids today. Qualifiers: Acute renal failure type: with acute tubular necrosis Qualified Code(s): N17.0 - Acute kidney failure with tubular necrosis (3) Vomiting and diarrhea Current Visit: Yes Status: Resolved (4) Hyponatremia Current Visit: Yes Status: Resolved (5) Asthma Current Visit: Yes Status: Chronic Assessment and plan: Appreciate pulmonary input. Will follow as outpatient. Qualifiers: Asthma severity: moderate Asthma complication type: with acute exacerbation Qualified Code(s): J45.41 - Moderate persistent asthma with ( acute) exacerbation (6) Diabetes Current Visit: Yes Status: Chronic Assessment and plan: Monitoring sugars. She has insulin pump. Qualifiers: Diabetes mellitus type: type 1 Diabetes mellitus complication status: with hyperglycemia Qualified Code(s): E10.65 - Type 1 diabetes mellitus with hyperglycemia (7) HLD (hyperlipidemia) Current Visit: Yes Status: Chronic Assessment and plan: Chronic issue Qualifiers: Hyperlipidemia type: mixed hyperlipidemia Qualified Code(s): E78.2 - Mixed hyperlipidemia (8) HTN (hypertension) Current Visit: Yes Status: Chronic Assessment and plan: SBP 150-160s. Reviewing meds and adjusting. Qualifiers: Hypertension type: essential hypertension Qualified Code(s): I10 - Essential (primary) hypertension (9) GERD (gastroesophageal reflux disease) Current Visit: Yes Status: Chronic Assessment and plan: Continue home meds. Qualifiers: Esophagitis presence: esophagitis presence not specified Qualified Code(s) : K21.9 - Gastro-esophageal reflux disease without esophagitis (10) Rheumatoid arthritis Current Visit: Yes Status: Chronic Assessment and plan: Has been off immunosuppressants. Qualifiers: Rheumatoid arthritis location: unspecified site Rheumatoid factor presence : unspecified presence Qualified Code(s): M06.9 - Rheumatoid arthritis, unspecified (11) DVT prophylaxis Current Visit: Yes Status: Acute - Constitutional Vitals: Temp Pulse Resp BP Pulse Ox 97.8 F 76 18 165/80 96 03/03/18 06:34 03/03/18 06:34 03/03/18 07:43 03/03/18 06:34 03/03/18 07:43 Internal Medicine: Result - Labs CBC & Chem 7: 03/03/18 05:24 03/03/18 05:24 Labs: Short CBC 03/03/18 Range/Units 05:24 WBC 10.8 (4.3-11.1) K/mcL Hgb 9.7 L (11.5-15.4) g/dL Hct 30.8 L (35.3-44.9) % Plt Count 288 (140-400) K/mcL Neutrophils # 10.4 H (1.6-8.9) K/mcL BMP 03/03/18 05:24 Sodium 138 Potassium 3.6 Chloride 102 Carbon Dioxide 26 BUN 34 H Creatinine 2.19 H Glucose 162 H Calcium 8.9 Liver Function 03/03/18 Range/Units 05:24 Total Bilirubin 0.3 (0.3-1.0) mg/dL AST 23 (13-39) Units/L ALT 22 (7-52) Units/L Alkaline Phosphatase 89 (34-104) Units/L Albumin 3.1 L (3.5-5.7) g/dL - ABG Interpretation ABG results: PT/INR, D-dimer PT 12.2 Seconds (9.4-12.1) H 02/27/18 15:02 - Attending Attestation I examined this patient and my medical decision-making was reviewed with the Resident Physician on 03/03/18. I agree with the documented findings, disposition and treatment plan as described except to the extent set forth below. Ms Moralez is currently admitted for bilateral pneumonia in immunocompromised state. She remains moderate to high risk due to potential for worsening clinical status. Ms Moralez is feeling better. Cultures are pending from bronch yesterday. No fever or chills. No CP. SOB slowly improving. Wants to go home. Exam alert Comfortable up in chair Mucus membranes dry Heart reg Lungs clear at this time. Abd soft Face less edematous I/P 1. Bilateral pneumonia - ? etiology. Cx from bronch pending. Continue abx 2. RA Further diagnoses and plan as above.
--- NOTE | 2018-03-03 16:21 | Nephrology Progress Note ---
Date of Encounter: 03/03/18 Time of Encounter: 12:00 - Assessment and Plan (1) MIKE (acute kidney injury) Current Visit: Yes Status: Acute Scr continues to improve slowly at 2.19, GFR 23 can stop IVF and continue po fluids UOP remains very good at 2750cc in the past 24hrs Continue to avoid nephrotoxins if possible (2) Hyponatremia Current Visit: Yes Status: Resolved normalized (3) Rheumatoid arthritis Current Visit: Yes Status: Chronic methotraxate and xeljanz on hold Qualifiers: Rheumatoid arthritis location: unspecified site Rheumatoid factor presence : unspecified presence Qualified Code(s): M06.9 - Rheumatoid arthritis, unspecified (4) Pneumonia Current Visit: Yes Status: Suspected Per infectious disease and pulm Qualifiers: Pneumonia type: due to other aerobic Gram-negative bacteria Laterality: bilateral Lung location: lower lobe of lung Qualified Code(s): J15.6 - Pneumonia due to other Gram-negative bacteria Subjective Principal diagnosis: PNA Interval history: Pt seen and examined sitting in chair with family at bedside. Pt reports improved breathing and wants to go home Objective - Vital Signs Vital signs: Vital Signs Temp Pulse Resp BP Pulse Ox 03/03/18 15:57 97.9 F 80 17 156/61 96 03/03/18 07:43 18 96 03/03/18 06:34 97.8 F 76 16 165/80 98 03/03/18 04:00 98.1 F 75 17 167/82 97 03/03/18 00:00 98.4 F 70 17 152/71 96 03/02/18 20:00 98.4 F 73 17 163/82 94 03/02/18 19:43 16 94 Intake and Output 03/03/18 03/03/18 03/03/18 07:59 15:59 23:59 Intake Total 1830 / 1830 600 / 600 Output Total 700 / 700 150 / 150 Balance 1130 / 1130 450 / 450 Intake: IV Fluids 1100 / 1100 0.9 % Sodium Chloride 1,000 ML 1000 / 1000 @ 125 mls/hr IVC .Q8H [facility] Rx#: [id number] Zosyn 3.375 GM In 0.9 % Sodium 100 / 100 Chloride (Mini-Bag +) 100 ML @ 25 mls/hr IVPB Q8H [facility] Rx#: [id number] Oral 730 / 730 600 / 600 Output: Urine 700 / 700 150 / 150 Other: Meal Lunch Percent of Meal Consumed 100% Stool Size Small Stool Consistency soft Weight 116.8 kg Blood Glucose* 158 227 Patient Weight 03/03/18 23:59 Weight 116.8 kg - General Appearance General appearance: Present: well-developed, well-nourished EENT: Present: ATNC, mucous membranes moist Neck: Present: no JVD, supple Additional Comments: good areation ant bilat Cardiology: Present: edema, normal S1, normal S2 Gastrointestinal: Present: no tenderness, no guarding Integumentary: Present: warm and dry Neurologic: Present: no focal deficit Musculoskeletal: Present: no deformities Psychiatric: Present: mood/affect appropriate, cooperative - Lab 03/03/18 05:24 03/03/18 05:24 Most recent lab results Calcium 8.9 mg/dL (8.6-10.3) 03/03/18 05:24 Magnesium 1.9 mg/dL (1.6-2.6) 02/28/18 03:50 Urine Creatinine 50 mg/dL 02/28/18 18:46 Urine Sodium 23.5 mEq/L 02/28/18 18:46 Consult Discharge Plan - Plan Referrals: Yuko Washington, PAPER FEEDER [Primary Care Provider] -
[2018-03-03] MEDS: LEVOFLOXACIN 750 MG/150 ML IVPB SCH (16:27)
[2018-03-03] MEDS: (Insulin Pump Cartridge [Insulin Pump] 1 DEVICE) SQ SCH (21:40)
[2018-03-04] MEDS: Piperacillin/Tazobactam 3.375 GM in 0.9 % Sodium Chloride Mini Bag 100 ML IVPB SCH ×2 (01:21→09:19)
[2018-03-04] MEDS: *HR* Heparin 5,000 UNIT/ML VIAL SQ SCH (05:54)
[2018-03-04 07:20] LABS: Basophils % 0.1 %; Eosinophils # 0.1 K/mcL (0.0-0.6); Eosinophils % 1.1 %; Hematocrit 30.2 % (35.3-44.9); Hemoglobin 9.8 g/dL (11.5-15.4); Immature Granulocytes % 1.5 % (0-4); Immature Platelets 2.6 % (1.1-6.1); Lymphocytes # 0.5 K/mcL (0.6-4.6); Lymphocytes % 5.9 %; Mean Corpuscular HGB Conc 32.5 g/dL (31.6-35.5); Mean Corpuscular Hemoglobin 29.7 pg (28.0-33.3); Mean Corpuscular Volume 91.5 fL (83.0-100.0); Mean Platelet Volume 10.3 fL (9.4-12.4); Monocytes # 0.4 K/mcL (0.0-1.3); Monocytes % 4.2 %; Nucleated Red Blood Cells 0.2 /100 WBC (0); Platelet Count 228 K/mcL (140-400); Red Cell Distribution Width 13.9 % (11.5-14.5); Segmented Neutrophils % 87.2 %
[2018-03-04 07:38] LABS: Bilirubin,Total 0.2 mg/dL (0.3-1.0); Calcium 8.9 mg/dL (8.6-10.3); Potassium 3.4 mEq/L (3.5-5.1)
[2018-03-04] MEDS: Budesonide/Formoterol 80/4.5 MDI IH SCH (07:51)
[2018-03-04] MEDS: predniSONE 20 MG TABLET PO SCH (09:18)
[2018-03-04] MEDS: Lactobacillus 1 EACH CAP.SPRINK PO SCH (09:18)
[2018-03-04] MEDS: Aspirin Enteric Coated 81 MG Tablet PO SCH (09:18)
[2018-03-04] MEDS: Folic Acid 1 MG TABLET PO SCH (09:19)
[2018-03-04] MEDS: Cholecalciferol (D-3) 1,000 UNIT TABLET PO SCH (09:19)
--- NOTE | 2018-03-04 14:42 | Internal Med Progress Note ---
<Reggie Palm P - Last Filed: 03/04/18 16:59> Date of Encounter: 03/04/18 Time of Encounter: 10:00 - Assessment and plan (1) Upper respiratory infection Current Visit: Yes Status: Acute Assessment and plan: Case of bilateral Atypical pneumonia, She had dry cough and mild grade of fever during admission ]Cough is still there but much better She has no fever She is on IV antibiotics Levaquine 750 and Zosyn 3.375 X day 3rd Sputum for PCP and sputum AFP negative , lagionella antigen negative Qualifiers: URI type: unspecified viral URI Qualified Code(s): J06.9 - Acute upper respiratory infection, unspecified (2) Asthma with exacerbation Current Visit: Yes Status: Chronic Assessment and plan: She has past medical history of asthma She has dry cough for last couple of days and mild fever couple of days back She is on IV antibiotics Supplemental O2 w/titration and SpO2 monitoring. Test for PCP and Legionella antigen negative Sputum AFB negative Qualifiers: Asthma severity: unspecified severity Asthma persistence: persistent Qualified Code(s): J45.901 - Unspecified asthma with (acute) exacerbation (3) Hyponatremia Current Visit: Yes Status: Resolved Assessment and plan: Her Hyponateremia has been resolved now Serum Na+ 140 (4) Vomiting and diarrhea Current Visit: Yes Status: Resolved (5) MKIE (acute kidney injury) Current Visit: Yes Status: Acute Assessment and plan: MIKE on admission w/creatinine of 4.02 and GFR of 11 Most likely prerenal or ATN Most recent creatinine:2.19,BUN 34,K+3.6 , Na 140 Urine output has improved a lot : 2700 ml Retroperitonel US found no evidence of hydronephrosis or nephrolithiasis Patient was on MTX and Xeljanz and we have put them on hold - Subjective Interval history: Today is day 5th of admission .She is 57 years old female presented to the ED on 02/27 with SOB and no urine output for 24 hours. 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 Pt went to her PCP first for cough with nausea/ vomiting and diarrhea and was treated with amoxicillin on 02/26/18. She was found to have oxygen saturation of 87% she received nebulization tratment and was sent home. The symptoms didnot get better so she reported to ER for cough , fatigue ,and decreased urine output. She admitted increasing SOB, cough, eyes matting shut and some weakness, but she denies rashes, fever, chills, night sweats, abdominal pain, dysuria. patient was admitted with urinary catheter in situ for further evaluation and management as she had elevated creatinine at 3.54, sodium 129, potassium 3.3, WBC count of 16.7. Chest CT found B/L focal opacities with concerns for multifocal pneumonia. Placed on Vancomycin, Zosyn, and Levofloxacin. Her broncospy was done and sputum sent for Cytology, AFB and fungal culture : reports awaited. Cryptococcal antigen and Legionella antigen is negative, AFB negative Today she is feeling well almost much improvement since her admission here on last Monday. Her dry cough is still there but much less, urination 5-6 times with clear urine with good volume.Her vitas are stable: 97.8F, 165/80, 96%, . WBC 10 , Hb 9.7 Na 140 , K 3.4 BUN 34, creatinine 2.19,lactate 0.8 Glucose 94 , Urinalysis; cloudy with 15-20 pus cell/ HPF, urine out put 2.7 L yesterday. Now we have discontinued vancomycin and continued Levaquin 750 and Zosyn 3.375 X day 3 and added prednisone 40 mg OD x day2 . - Constitutional Vitals: Temp Pulse Resp BP Pulse Ox 97.9 F 70 16 166/76 94 03/04/18 11:37 03/04/18 11:37 03/04/18 11:37 03/04/18 11:37 03/04/18 11:37 General appearance: Present: cooperative, A&O X 2, mild distress (SOB/cough), A& O X 3, pleasant, obese, answers questions appropriately Exam: Gen: Oriented to TPP, Patient resting in bed, coughing, mild distress HEENT: Atraumatic, normocephalic, EYE: mild conjectival congestion , redness , no discharge Cardio: Normal rate and rhythm,S1S2 no murmur, rub Lung : Minimal wheezes, fine crepitation at lower zone both side Abd: Soft , warm , no rigidity , guarding, no tenderness , no mass or visible pulsation, no organomegaly noted Neuro: CN II-XII intact, normal posture,normal reflexes Extremities: bilateral Pitting edema , no calf swelling. Internal Medicine: Result - Labs CBC & Chem 7: 03/04/18 07:00 03/04/18 07:00 Labs: Short CBC 03/04/18 Range/Units 07:00 WBC 9.2 (4.3-11.1) K/mcL Hgb 9.8 L (11.5-15.4) g/dL Hct 30.2 L (35.3-44.9) % Plt Count 228 (140-400) K/mcL Neutrophils # 8.0 (1.6-8.9) K/mcL BMP 03/04/18 07:00 Sodium 140 Potassium 3.4 L Chloride 102 Carbon Dioxide 31 H BUN 34 H Creatinine 2.19 H Glucose 94 Calcium 8.9 Liver Function 03/04/18 Range/Units 07:00 Total Bilirubin 0.2 L (0.3-1.0) mg/dL AST 22 (13-39) Units/L ALT 22 (7-52) Units/L Alkaline Phosphatase 83 (34-104) Units/L Albumin 3.0 L (3.5-5.7) g/dL - ABG Interpretation ABG results: PT/INR, D-dimer PT 12.2 Seconds (9.4-12.1) H 02/27/18 15:02 Consult Discharge Plan - Plan Additional Instructions: Please follow up with : Dr. Adams (Dr. Kin Lira) for kidneys Dr. Elle Pickett for infectious disease Referrals: Yuko Washington, GUEST EXPERIENCE CAPTAIN [Primary Care Provider] - (Follow up in 1-2 weeks) Prescriptions: levoFLOXacin [Levaquin] 750 mg PO Q48H #3 tablet predniSONE [PredniSONE] 40 mg PO DAILY #4 tablet <Judson Castaneda - Last Filed: 03/04/18 17:44> Date of Encounter: 03/04/18 - Assessment and plan (1) Pneumonia Current Visit: Yes Status: Suspected Qualifiers: Pneumonia type: due to other aerobic Gram-negative bacteria Laterality: bilateral Lung location: lower lobe of lung Qualified Code(s): J15.6 - Pneumonia due to other Gram-negative bacteria (2) Asthma with exacerbation Current Visit: Yes Status: Chronic Qualifiers: Asthma severity: unspecified severity Asthma persistence: persistent Qualified Code(s): J45.901 - Unspecified asthma with (acute) exacerbation (3) Vomiting and diarrhea Current Visit: Yes Status: Resolved (4) Hyponatremia Current Visit: Yes Status: Resolved (5) Acute renal failure Current Visit: Yes Status: Suspected Qualifiers: Acute renal failure type: with acute tubular necrosis Qualified Code(s): N17.0 - Acute kidney failure with tubular necrosis (6) Rheumatoid arthritis Current Visit: Yes Status: Chronic Qualifiers: Rheumatoid arthritis location: unspecified site Rheumatoid factor presence : unspecified presence Qualified Code(s): M06.9 - Rheumatoid arthritis, unspecified (7) HTN (hypertension) Current Visit: Yes Status: Chronic Qualifiers: Hypertension type: essential hypertension Qualified Code(s): I10 - Essential (primary) hypertension (8) HLD (hyperlipidemia) Current Visit: Yes Status: Chronic Qualifiers: Hyperlipidemia type: mixed hyperlipidemia Qualified Code(s): E78.2 - Mixed hyperlipidemia (9) Diabetes Current Visit: Yes Status: Chronic Qualifiers: Diabetes mellitus type: type 1 Diabetes mellitus complication status: with hyperglycemia Qualified Code(s): E10.65 - Type 1 diabetes mellitus with hyperglycemia - Constitutional Vitals: Temp Pulse Resp BP Pulse Ox 98.1 F 83 18 165/84 95 03/04/18 16:23 03/04/18 16:23 03/04/18 16:23 03/04/18 16:23 03/04/18 16:23 Internal Medicine: Result - Labs CBC & Chem 7: 03/04/18 07:00 03/04/18 07:00 Labs: Short CBC 03/04/18 Range/Units 07:00 WBC 9.2 (4.3-11.1) K/mcL Hgb 9.8 L (11.5-15.4) g/dL Hct 30.2 L (35.3-44.9) % Plt Count 228 (140-400) K/mcL Neutrophils # 8.0 (1.6-8.9) K/mcL BMP 03/04/18 07:00 Sodium 140 Potassium 3.4 L Chloride 102 Carbon Dioxide 31 H BUN 34 H Creatinine 2.19 H Glucose 94 Calcium 8.9 Liver Function 03/04/18 Range/Units 07:00 Total Bilirubin 0.2 L (0.3-1.0) mg/dL AST 22 (13-39) Units/L ALT 22 (7-52) Units/L Alkaline Phosphatase 83 (34-104) Units/L Albumin 3.0 L (3.5-5.7) g/dL - ABG Interpretation ABG results: PT/INR, D-dimer PT 12.2 Seconds (9.4-12.1) H 02/27/18 15:02 - Attending Attestation Please see discharge summary of this date.
--- NOTE | 2018-03-04 15:57 | Nephrology Progress Note ---
Date of Encounter: 03/04/18 Time of Encounter: 12:00 - Assessment and Plan (1) MIKE (acute kidney injury) Status: Acute Scr at a plateau at 2.19, GFR 23 UOP has dropped the last 2 days at 1150cc in the past 24hrs, po fluids encouraged No acute indication for ADMINISTRATIVE PERSONAL ASSISTANT at this time Continue to avoid nephotoxins if possible BMP within a week on discharge and followup with nephrology with 2-4 weeks (2) Hyponatremia Status: Resolved normalized at 140 (3) Rheumatoid arthritis Status: Chronic methotraxate and xeljanz on hold Qualifiers: Rheumatoid arthritis location: unspecified site Rheumatoid factor presence : unspecified presence Qualified Code(s): M06.9 - Rheumatoid arthritis, unspecified (4) Pneumonia Status: Suspected Per infectious disease and pulm Qualifiers: Pneumonia type: due to other aerobic Gram-negative bacteria Laterality: bilateral Lung location: lower lobe of lung Qualified Code(s): J15.6 - Pneumonia due to other Gram-negative bacteria Subjective Principal diagnosis: PNA Interval history: Pt seen and examined sitting in chair with family at bedside. Pt reports improved breathing and wants to go home Objective - Vital Signs Vital signs: Vital Signs Temp Pulse Resp BP Pulse Ox 03/04/18 11:37 97.9 F 70 16 166/76 94 03/04/18 07:51 16 98 03/04/18 07:00 98.1 F 69 16 158/84 03/04/18 04:00 97.9 F 68 15 153/72 96 03/03/18 22:58 15 164/81 96 03/03/18 20:00 97.9 F 84 15 164/81 95 Intake and Output 03/03/18 03/04/18 03/04/18 23:59 07:59 15:59 Intake Total 220 / 220 400 / 400 240 / 240 Output Total 300 / 300 2124 / 2124 375 / 375 Balance -80 / -80 -1725 / -1725 -135 / -135 Intake: IV Fluids 100 / 100 100 / 100 Zosyn 3.375 GM In 0.9 % Sodium 100 / 100 100 / 100 Chloride (Mini-Bag +) 100 ML @ 25 mls/hr IVPB Q8H [facility] Rx#: [id number] Oral 120 / 120 300 / 300 240 / 240 Output: Urine 300 / 300 2124 / 2124 375 / 375 Other: Meal Dinner Lunch Percent of Meal Consumed 80% 90% Weight 116.8 kg Blood Glucose* 293 83 91 Patient Weight 03/04/18 23:59 Weight 116.8 kg - General Appearance General appearance: Present: well-developed, well-nourished EENT: Present: ATNC, mucous membranes moist Neck: Present: no JVD, supple Additional Comments: improved areation ant bilat Cardiology: Present: edema, normal S1, normal S2 Gastrointestinal: Present: no tenderness, no guarding Integumentary: Present: warm and dry Neurologic: Present: no focal deficit Musculoskeletal: Present: no deformities Psychiatric: Present: mood/affect appropriate - Lab 03/04/18 07:00 03/04/18 07:00 Most recent lab results Calcium 8.9 mg/dL (8.6-10.3) 03/04/18 07:00 Magnesium 1.9 mg/dL (1.6-2.6) 02/28/18 03:50 Urine Creatinine 50 mg/dL 02/28/18 18:46 Urine Sodium 23.5 mEq/L 02/28/18 18:46 Consult Discharge Plan - Plan Additional Instructions: Please follow up with : Dr. Adams (Dr. Kin Lira) for kidneys Dr. Elle Pickett for infectious disease Referrals: Yuko Washington, MUD WORKER [Primary Care Provider] - (Follow up in 1-2 weeks) Prescriptions: levoFLOXacin [Levaquin] 750 mg PO Q48H #3 tablet predniSONE [PredniSONE] 40 mg PO DAILY #4 tablet
[2018-03-04 16:25] LABS: A.galactomannan Ag Index 0.06
[2018-03-04 16:26] VITALS: BP 165/84
--- NOTE | 2018-03-04 16:37 | Discharge Summary ---
- NOTES TO OUTPATIENT PROVIDER Notes to Outpatient Provider: Pt admitted with bilateral pneumonia. She was seen by ID and pulmonary and due to her immunocompromised state she had a bronchoscopy. She has steadily improved on abx. Orders not resulted at time of discharge: Pending orders 03/02/18 08:21 NORMA IgG DORIS rflx IFA Stat Aspergillus galactomannan Ag Stat Fungal Ab by CF, EIA Stat Fungitell (1,3)-xvbt-N-Xvfemj Stat MPO/PR3 (ANCA) Antibodies Stat 03/02/18 08:45 Histoplasma galactomannan,Ur Stat 03/02/18 13:05 Herpes Simplex PCR Body Fl Routine Resp.Virus Panel,Body Fl Routine 03/02/18 13:06 Cytology [PTH] Routine 03/02/18 13:15 AFB Culture, Respiratory [TB] Routine AFB Smear [TB] Routine Fungal Culture [MYC] Routine Legionella Culture [RM] Routine Date of Encounter: 03/04/18 Time of Encounter: 16:33 - Discharge Diagnosis (1) Pneumonia Priority: Primary Status: Suspected Qualifiers: Pneumonia type: due to other aerobic Gram-negative bacteria Laterality: bilateral Lung location: lower lobe of lung Qualified Code(s): J15.6 - Pneumonia due to other Gram-negative bacteria (2) Asthma with exacerbation Priority: Secondary Status: Chronic Qualifiers: Asthma severity: unspecified severity Asthma persistence: persistent Qualified Code(s): J45.901 - Unspecified asthma with (acute) exacerbation (3) Vomiting and diarrhea Priority: Secondary Status: Resolved (4) Hyponatremia Priority: Secondary Status: Resolved (5) Acute renal failure Priority: Secondary Status: Suspected Qualifiers: Acute renal failure type: with acute tubular necrosis Qualified Code(s): N17.0 - Acute kidney failure with tubular necrosis (6) Rheumatoid arthritis Priority: Secondary Status: Chronic Qualifiers: Rheumatoid arthritis location: unspecified site Rheumatoid factor presence : unspecified presence Qualified Code(s): M06.9 - Rheumatoid arthritis, unspecified (7) HTN (hypertension) Priority: Secondary Status: Chronic Qualifiers: Hypertension type: essential hypertension Qualified Code(s): I10 - Essential (primary) hypertension (8) HLD (hyperlipidemia) Priority: Secondary Status: Chronic Qualifiers: Hyperlipidemia type: mixed hyperlipidemia Qualified Code(s): E78.2 - Mixed hyperlipidemia (9) Diabetes Priority: Secondary Status: Chronic Qualifiers: Diabetes mellitus type: type 1 Diabetes mellitus complication status: with hyperglycemia Qualified Code(s): E10.65 - Type 1 diabetes mellitus with hyperglycemia Hospital course: Ms. Moralez is a 57 year old female with hx of IDDM and RA presented to ED with fever and cough. She was evaluated and placed in the hospital for further work up. Ms Moralez was placed in the hospital on med tele. The next day her abx were continued and she had CT showing bilateral lower lobe infiltrates. She continued to have leukocytosis and cough despite treatment. She was seen by ID and pulm and had bronchoscopy. Vancomycin was stopped. Culture from bronchi and AFB negative. She had slow improvement in her symptoms. She also had issues with renal failure and was seen by nephrology. She received IV fluids and her renal function has improved though not at baseline. Today she is afebrile. She is comfortable with minimal cough. She is going to be discharged home with scripts for completion of Prednisone and Levaquin. Some studies from the bronch are still pending. She is to follow up with PCP, renal and ID. Discharge discussed with: patient, family - Time Spent with Patient Total time spent providing and/or coordinating discharge services: 42min - Discharge Medications Prescriptions: levoFLOXacin [Levaquin] 750 mg PO Q48H #3 tablet predniSONE [PredniSONE] 40 mg PO DAILY #4 tablet Home Medications: Albuterol Sulfate [Proair Hfa] 2 puff IH Q4H PRN 02/27/18 [History] Aspirin Enteric Coated [Aspirin EC] 81 mg PO DAILY 02/27/18 [History] Budesonide [Pulmicort Flexhaler 90mcg] 2 puff IH BID 02/27/18 [History] Calcium Carbonate [Calcium] 600 mg PO DAILY 02/27/18 [History] Carvedilol 12.5 mg PO BID 02/27/18 [History] Cholecalciferol (D-3) [Vitamin D] 2,000 unit PO DAILY 02/27/18 [History] Esomeprazole Magnesium [Nexium] 20 mg PO DAILY 02/27/18 [History] Folic Acid 0.8 mg PO DAILY 02/27/18 [History] Insulin Pump Cartridge [Insulin Pump] 1 device SQ AD 02/27/18 [History] Rosuvastatin [Crestor] 40 mg PO HS 02/27/18 [History] Lactobacillus [Culturelle] 1 each PO BID [email or web address] 03/04/18 [Rx] levoFLOXacin [Levaquin] 750 mg PO Q48H #3 tablet 03/04/18 [Rx] predniSONE [PredniSONE] 40 mg PO DAILY #4 tablet 03/04/18 [Rx] Allergies/Adverse Reactions: 3 Allergy/AdvReac Type Severity Reaction Status Date / Time fluoxetine [From Prozac] Allergy Dizziness Verified 02/27/18 16:55 Date of admission: 02/28/18 19:22 Primary care physician: Yuko Washington CNP Consults: 03/01/18 15:17 Consult to Infectious Diseases [CONS] Routine Consulting Provider: Infectious Disease [place] Reason for Consult: Pt was on MTX and Xeljanz presents with urinary retention from MIKE and probable multifocal pneumonia and elevated WBCs. Call Completed: No 03/01/18 19:02 Consult to Pulmonology [CONS] Routine Consulting Provider: Pulm [facility] [place] Reason for Consult: pneumonia in immunosuppressed patient Call Completed: No Discharging clinician: Judson Castaneda Anticipated date of discharge: 03/04/18 - Constitutional Vitals: Temp Pulse Resp BP Pulse Ox 98.1 F 83 18 165/84 95 03/04/18 16:23 03/04/18 16:23 03/04/18 16:23 03/04/18 16:23 03/04/18 16:23 General appearance: Present: cooperative, A&O X 3, pleasant, obese, answers questions appropriately - Head Head exam: Present: atraumatic, normocephalic - Eye Eye exam: Present: conjuntiva pink - ENT ENT exam: Present: mucous membranes moist - Respiratory Respiratory exam: Present: decreased breath sounds, CTAB. Absent: rales, rhonchi, wheezes - Cardiovascular Cardiovascular exam: Present: RRR. Absent: tachycardia - GI/Abdominal GI/Abdominal exam: Present: soft. Absent: tenderness - Extremities Exam Extremities exam: Present: warm. Absent: tenderness - Neurological Exam Neurological exam: Present: alert, oriented X3 - Skin Skin exam: Present: dry, warm. Absent: rash - Patient Status Disposition: Home, Self-Care Condition: Good Functional capacity at discharge: independent ambulation Overall status at discharge: patient is progressing back to baseline - Discharge Instructions Follow Up With: Yuko Washington, PRECISION FARMING COORDINATOR [Primary Care Provider] - (Follow up in 1-2 weeks) Forms: Inpatient Work/School Release Additional Instructions: Please follow up with : Dr. Adams (Dr. Kin Lira) for kidneys Dr. Elle Pickett for infectious disease - Diet and Activity Activity: increase activity as tolerated Diet: advance to your usual diet
[2018-03-05] MEDS ORDERED: levoFLOXacin 750 MG TABLET PO SCH (09:00)
[2018-03-05 13:46] LABS: ANA IgG by ELISA NONE DETECTED (None Detected); Myeloperoxidase Ab 0 AU/mL (0-19); Serine Protease-3 Antibody 1 AU/mL (0-19)
[2018-03-06 11:23] LABS: Aspergillus Ab by CF <1:8 (<1:8); Coccidioides Ab by CF <1:2 (<1:2)
[2018-03-07 17:01] LABS: Influenza A PCR Body Fluid NOT DETECTED; Influenza B PCR Body Fluid NOT DETECTED; RVP Body Fluid Source RLL LUNG
[2018-03-08 08:32] LABS: RSV PCR Body Fluid NOT DETECTED
[2018-03-08 13:13] LABS: HSV Source RLL LUNG
== END 2018-03-04 18:18 | disposition home or self-care (01) | DRG 166 ==
LOC: EMEROOARM 14:16 → 2NENU 14:16 → SUATTDRO 17:15 → 2NENU 18:55
PROVIDERS: ADMIT Internal Medicine; ATTEND Internal Medicine